=== PATIENT | male | born 1975 | race American Indian/Alaskan Native ===

== ENCOUNTER 2016-06-01 09:05 | Emergency (ER) | payer MEDICAID ==
[2016-06-01] MEDS ORDERED: D5NS 0.2% 1,000 ML IV ONE (09:17)
[2016-06-01] MEDS ORDERED: BENADRYL IV ONE ×2 (11:42→14:46)
[2016-06-01] MEDS ORDERED: ZOFRAN IV ONE (11:42)
[2016-06-01] MEDS ORDERED: DILAUDID IV ONE ×4 (11:42→14:46)
--- NOTE | 2016-06-01 12:19 | Emergency Department Report ---
HPI - General Chief Complaint: Sickle Cell Crisis Time Seen by Provider: 06/01/16 10:57 - HPI HPI: The patient is a 40-year-old male with a history of sickle cell disease, who presents for evaluation of pain. The patient reports left lower back pain for the past one day, constant since onset, 10 out of 10 in severity, throbbing in quality, exacerbated with movement of the lower back. He states that his current pain is consistent with previous episodes of sickle cell pain attacks. The patient denies blunt trauma to the back, fall, fever, chills, night sweats, saddle anesthesia, paresthesias, numbness or tingling in the legs, leg weakness , urine or bowel incontinence or retention, difficulty ambulating, or other focal neurological deficits. ED Past Medical Hx - Past Medical History Hx Hypertension: Yes Hx Diabetes: No Hx Sickle Cell Disease: Yes Hx COPD: No Hx HIV: No Additional medical history: sickle cell. - Surgical History Hx Open Heart Surgery: No Additional Surgical History: Right chest and right arm port and removal of both - Social History Smoking Status: Current Every Day Smoker Substance Use Type: None - Medications Home Medications: Home Medications Medication Instructions Recorded Confirmed Last Taken Type Folic Acid [Folvite] 1 mg PO QDAY #30 tablet 08/29/15 03/21/16 01/28/16 Rx 1 mg. Hydroxyurea [Droxia] 500 mg PO BID #60 capsule 08/29/15 03/21/16 Unknown Rx Lisinopril [Zestril TAB] 1 tab PO BID 12/29/15 03/21/16 Unknown History Methadone [Dolophine] 60 mg PO DAILY 01/29/16 03/21/16 Unknown History Oxycodone HCl/Acetaminophen 1 each PO Q6HR PRN #30 tablet 03/24/16 Unknown Rx [Percocet 10/325 mg] ED Review of Systems ROS: Stated complaint: SICKLE CELL CRISIS Other details as noted in HPI Constitutional: denies: fever ENT: denies: throat or neck pain Respiratory: denies: cough, shortness of breath Cardiovascular: denies: chest pain Endocrine: denies unexplained weight loss or gain Gastrointestinal: denies: abdominal pain, nausea Genitourinary: denies: dysuria Musculoskeletal: reports back pain Skin: denies: rash Neurological: denies: headache Hematological/Lymphatic: denies: easy bleeding or easy bruising Psych: denies sadness or hopelessness Physical Exam - Physical Exam Vital Signs: Vital Signs 06/01/16 09:12 Temperature 98.3 F Pulse Rate 78 Respiratory 20 Rate Blood Pressure 129/90 O2 Sat by Pulse 98 Oximetry Physical Exam: General: well-nourished, well-developed, no acute distress Head: Normocephalic, atraumatic Eyes: normal sclera ENT: Mucous membranes are pale and dry Neck: trachea midline, neck supple, No neck stiffness, no cervical adenopathy Respiratory: Breath sounds equal bilaterally, no wheezing, rales, or rhonchi Cardio: S1 and S2 present, no murmurs, rubs, gallops, capillary refill is delayed Abdomen: Normoactive bowel sounds, soft abdomen, no rigidity, no guarding or rebound tenderness Musc: Tenderness to palpation present to left lower lumbar paraspinal musculature, pain is elicited with flexion at the hip, normal active range of motion at the hip intact, no spinous step-off or obvious deformity, ipsi- lateral and contralateral straight leg raise tests are negative. On extremity testing, compartments are soft and pliable, no obvious gross motor strength deficit, 5+ motor strength, including extension of the great toe bilaterally, no muscular atrophy, spasticity, fasciculations, or clonus, no obvious gross sensation deficit including web space between 1st and 2nd toes, reflexes 2+ & symmetric on DTR testing at the knee and ankle joints, distal pulses intact. Skin: No rash Neuro: no facial drooping, normal speech Psych: Normal affect ED Course Vital Signs 06/01/16 09:12 Temperature 98.3 F Pulse Rate 78 Respiratory 20 Rate Blood Pressure 129/90 O2 Sat by Pulse 98 Oximetry ED Medical Decision Making - Medical Decision Making The patient was seen and examined by myself. The patient is placed on a electronic device monitor and continuous pulse ox. On initial evaluation, the patient was found to be in no distress. No findings on exam concerning for cauda equina syndrome, spinal stenosis, epidural abscess, or other emergent etiology of back pain. As the patient has no midline tenderness on exam, no neuro deficits, and no findings concerning for emergent etiology of their back pain, imaging will not be obtained at this time. IV access is established and the patient is given fluid resuscitation, Zofran, and multiple doses of dilaudid for their pain. Lab results reveal elevated reticulocyte count, and a stable hemoglobin level at patient baseline. Lab results otherwise are not concerning. The patient was reevaluated and reported that their pain was significantly improved. The patient is stable for discharge with outpatient follow-up. The patient is given follow-up and return instructions. The patient expressed understanding and agreed with the plan. The patient is discharged in stable condition. Critical care attestation.: If time is entered above; I have spent that time in minutes in the direct care of this critically ill patient, excluding procedure time. ED Disposition Clinical Impression: Sickle cell crisis, Dehydration Disposition: DISCHARGED TO HOME OR SELFCARE Is pt being admited?: No Does the pt Need Aspirin: No Condition: Stable Instructions: Sickle Cell Crisis (ED) Referrals: PRIMARY CARE, [Primary Care Provider] - 3-5 Days Time of Disposition: 12:18
[2016-06-01 14:13] LABS: Hematocrit 38.4 % (35.5-45.6); Hemoglobin 13.2 gm/dl (11.8-15.2); Mean Corpuscular HGB Conc 34 % (32-34); Mean Corpuscular Hemoglobin 30 pg (28-32); Mean Corpuscular Volume 88 fl (84-94); Platelet Count 340 K/mm3 (140-440); Red Blood Count 4.36 M/mm3 (3.65-5.03); Red Cell Distribution Width 18.1 % (13.2-15.2); White Blood Count 13.2 K/mm3 (4.5-11.0)
[2016-06-01 16:49] VITALS: BP 121/82
== END 2016-06-01 15:50 | disposition home or self-care (01) ==
LOC: ED 09:05
DX: D57.00 Hb-SS disease with crisis, unspecified (principal); E86.0 Dehydration; I10 Essential (primary) hypertension; F17.200 Nicotine dependence, unspecified, uncomplicated
CPT/HCPCS: 36415; 85025; 85045; 96361; 96374; 96375; 96376; 99284; J1170; J1200; J2405

== ENCOUNTER 2016-07-04 13:09 | Emergency (ER) | payer MEDICAID ==
[2016-07-04] MEDS ORDERED: D5NS 0.2% 1,000 ML IV SCH (14:00)
[2016-07-04 14:32] LABS: Basophils % (Auto) 0.6 % (0.0-1.8); Eosinophils % (Auto) 7.1 % (0.0-4.3); Hemoglobin 13.2 gm/dl (11.8-15.2); Mean Corpuscular HGB Conc 34 % (32-34); Mean Corpuscular Hemoglobin 30 pg (28-32); Mean Corpuscular Volume 89 fl (84-94); Red Blood Count 4.37 M/mm3 (3.65-5.03); Red Cell Distribution Width 17.2 % (13.2-15.2); Reticulocyte % 3.64 % (0.78-2.58); White Blood Count 11.3 K/mm3 (4.5-11.0)
[2016-07-04 14:36] LABS: Platelet Count 408 K/mm3 (140-440)
[2016-07-04] MEDS ORDERED: DILAUDID IM ONE ×3 (20:54→22:22)
[2016-07-04] MEDS ORDERED: BENADRYL PO ONE (20:54)
[2016-07-04] MEDS ORDERED: ZOFRAN PO ONE (20:54)
--- NOTE | 2016-07-04 20:59 | Emergency Department Report ---
ED General Adult HPI - General Chief complaint: Sickle Cell Crisis Stated complaint: SICKLE CELL CRISIS Time Seen by Provider: 07/04/16 20:48 Source: patient, RN notes reviewed, old records reviewed Mode of arrival: Ambulatory Limitations: No Limitations - History of Present Illness Initial comments: This is a 40-year-old male. I have evaluated him in the past. Has a past medical history of sickle cell disease. His primary care doctor is Dr. Sherman. Has a past medical history of hypertension, and reports that has been removed from the right arm/chest. The patient presents to the ER complaining of his typical sickle cell crisis pain. The pain is in the left upper extremity, and left lower extremity. It has been present for a few days. It increases with palpation and range of motion, and decreases with intramuscular or intravenous hydromorphone. The patient reports that he always has his pain at a "3." There is no irritative or obstructive urinary symptoms, no abdominal pain, no sore throat. No chest pain. The patient further reports that his triggers for sickle cell crisis included dehydration, whether, change of seasons, emotional stressors. Patient was recently admitted to the hospital earlier on this month for sickle cell crisis. -: Gradual Location: left, upper extremity, lower extremity Quality: aching Consistency: constant Improves with: medication, rest Worsens with: movement Associated Symptoms: loss of appetite, malaise. denies: confusion, chest pain, cough, diaphoresis, fever/chills - Related Data Home Medications Medication Instructions Recorded Confirmed Last Taken Lisinopril [Zestril TAB] 1 tab PO BID 12/29/15 03/21/16 Unknown Methadone [Dolophine] 60 mg PO DAILY 01/29/16 03/21/16 Unknown Previous Rx's Medication Instructions Recorded Last Taken Type Folic Acid [Folvite] 1 mg PO QDAY #30 tablet 08/29/15 01/28/16 Rx 1 mg. Hydroxyurea [Droxia] 500 mg PO BID #60 capsule 08/29/15 Unknown Rx Oxycodone HCl/Acetaminophen 1 each PO Q6HR PRN #14 tablet 06/13/16 Unknown Rx [Percocet 10/325 mg] Ketorolac [Toradol] 10 mg PO Q6H PRN #20 tablet 07/04/16 Unknown Rx oxyCODONE [Roxicodone] 5 mg PO Q6HR PRN #15 tablet 07/04/16 Unknown Rx Allergies Allergy/AdvReac Type Severity Reaction Status Date / Time morphine Allergy Swelling Verified 10/17/15 10:59 prochlorperazine edisylate Allergy Itching Verified 10/17/15 10:59 [From Compazine] prochlorperazine maleate Allergy Itching Verified 10/17/15 10:59 [From Compazine] ED Review of Systems ROS: Stated complaint: SICKLE CELL CRISIS Other details as noted in HPI Constitutional: malaise. denies: fever Eyes: denies: vision change ENT: denies: epistaxis Respiratory: denies: cough Cardiovascular: denies: chest pain Gastrointestinal: denies: abdominal pain Genitourinary: denies: urgency, dysuria Musculoskeletal: arthralgia, myalgia Skin: denies: lesions Neurological: weakness ED Past Medical Hx - Past Medical History Hx Hypertension: Yes Hx Congestive Heart Failure: No Hx Diabetes: No Hx Sickle Cell Disease: Yes Hx Asthma: No Hx COPD: No Hx HIV: No Additional medical history: sickle cell. - Surgical History Hx Open Heart Surgery: No Additional Surgical History: Right chest and right arm port and removal of both - Social History Smoking Status: Current Every Day Smoker Substance Use Type: None - Medications Home Medications: Home Medications Medication Instructions Recorded Confirmed Last Taken Type Folic Acid [Folvite] 1 mg PO QDAY #30 tablet 08/29/15 03/21/16 01/28/16 Rx 1 mg. Hydroxyurea [Droxia] 500 mg PO BID #60 capsule 08/29/15 03/21/16 Unknown Rx Lisinopril [Zestril TAB] 1 tab PO BID 12/29/15 03/21/16 Unknown History Methadone [Dolophine] 60 mg PO DAILY 01/29/16 03/21/16 Unknown History Oxycodone HCl/Acetaminophen 1 each PO Q6HR PRN #14 tablet 06/13/16 Unknown Rx [Percocet 10/325 mg] Ketorolac [Toradol] 10 mg PO Q6H PRN #20 tablet 07/04/16 Unknown Rx oxyCODONE [Roxicodone] 5 mg PO Q6HR PRN #15 tablet 07/04/16 Unknown Rx ED Physical Exam - General Limitations: No Limitations General appearance: in distress - Head Head exam: Present: atraumatic, normocephalic - Eye Eye exam: Present: normal appearance, EOMI. Absent: nystagmus - ENT ENT exam: Present: normal exam, normal orophraynx, mucous membranes moist, normal external ear exam - Neck Neck exam: Present: normal inspection, full ROM. Absent: tenderness, meningismus - Respiratory Respiratory exam: Present: normal lung sounds bilaterally. Absent: respiratory distress, wheezes, rales, rhonchi, stridor, chest wall tenderness, accessory muscle use - Cardiovascular Cardiovascular Exam: Present: normal rhythm, bradycardia, normal heart sounds. Absent: tachycardia, irregular rhythm, systolic murmur, diastolic murmur, rubs, gallop - GI/Abdominal GI/Abdominal exam: Present: soft, normal bowel sounds. Absent: distended, tenderness, guarding, rebound, rigid, pulsatile mass - Rectal Rectal exam: Present: deferred - Extremities Exam Extremities exam: Present: normal inspection, full ROM, tenderness (lung bony tenderness noted in the lower and upper extremities. No redness, pus, streaking or crepitus.), normal capillary refill, other (compartments are soft in 4 extremities. 2+ pulses noted in all 4 extremities. There is no palpable cord, there is negative Homans sign.). Absent: pedal edema, joint swelling, calf tenderness - Back Exam Back exam: Present: normal inspection, full ROM, paraspinal tenderness. Absent : tenderness, CVA tenderness (R), CVA tenderness (L), muscle spasm, vertebral tenderness - Neurological Exam Neurological exam: Present: alert, oriented X3, other (Extraocular movements intact. Tongue midline. No facial droop. Facial sensation intact to light touch in the V1, V2, V3 distribution bilaterally. 5 and 5 strength in 4 extremities.. Sensation is intact to light touch in 4 extremities.). Absent: motor sensory deficit - Psychiatric Psychiatric exam: Present: normal affect, normal mood - Skin Skin exam: Present: warm, dry, intact, normal color. Absent: rash ED Course Vital Signs 07/04/16 07/04/16 07/04/16 13:52 22:04 22:06 Temperature 98.5 F Pulse Rate 48 L 58 L 49 L Respiratory 18 14 22 Rate Blood Pressure 157/94 158/76 O2 Sat by Pulse 98 96 96 Oximetry 07/04/16 07/04/16 07/04/16 22:10 22:16 22:20 Temperature Pulse Rate 50 L 48 L 47 L Respiratory 15 12 15 Rate Blood Pressure 158/76 181/58 181/58 O2 Sat by Pulse 97 97 96 Oximetry 07/04/16 07/04/16 07/04/16 22:26 22:30 22:36 Temperature Pulse Rate 47 L 47 L 50 L Respiratory 14 13 21 Rate Blood Pressure 162/74 162/74 159/77 O2 Sat by Pulse 95 95 96 Oximetry 07/04/16 07/04/16 07/04/16 22:40 22:46 22:50 Temperature Pulse Rate 46 L 50 L 52 L Respiratory 12 19 14 Rate Blood Pressure 159/77 159/77 159/77 O2 Sat by Pulse 98 97 97 Oximetry 07/04/16 07/04/16 22:56 23:00 Temperature Pulse Rate 50 L 55 L Respiratory 11 L 16 Rate Blood Pressure 159/77 159/77 O2 Sat by Pulse 96 97 Oximetry - Reevaluation(s) Reevaluation #1: 07/04/16 20:58 Differential diagnosis: Sickle cell crisis Assessment and plan: 40-year-old male with typical sickle cell crisis. He is afebrile with reassuring vital signs with the exception of slightly elevated blood pressure. He does not appear to be superinfected. His physical examination is not suggestive of compartment syndrome or DVT. His pain will be treated aggressively. Laboratory studies reviewed and appreciated. Reevaluation #2: 07/04/16 22:26 Model signs remained stable. Patient does experience some improvement in his pain. He will be discharged with instructions to follow-up with his outpatient clinical informatics educator. ED Medical Decision Making - Lab Data Result diagrams: 07/04/16 14:10 Vital Signs 07/04/16 13:52 Temperature 98.5 F Pulse Rate 48 L Respiratory 18 Rate Blood Pressure 157/94 O2 Sat by Pulse 98 Oximetry Lab Results 07/04/16 Range/Units 14:10 WBC 11.3 H (4.5-11.0) K/mm3 RBC 4.37 (3.65-5.03) M/mm3 Hgb 13.2 (11.8-15.2) gm/dl Hct 39.0 (35.5-45.6) % MCV 89 (84-94) fl MCH 30 (28-32) pg MCHC 34 (32-34) % RDW 17.2 H (13.2-15.2) % Plt Count 408 (140-440) K/mm3 Lymph % (Auto) 34.0 (13.4-35.0) % [place] % (Auto) 6.4 (0.0-7.3) % Eos % (Auto) 7.1 H (0.0-4.3) % Baso % (Auto) 0.6 (0.0-1.8) % Lymph # 3.9 (1.2-5.4) K/mm3 [place]inkler # 0.7 (0.0-0.8) K/mm3 Eos # 0.8 H (0.0-0.4) K/mm3 Baso # 0.1 (0.0-0.1) K/mm3 Seg Neutrophils % 51.9 (40.0-70.0) % Seg Neutrophils # 5.9 (1.8-7.7) K/mm3 Percent Retic 3.64 H (0.78-2.58) % Critical care attestation.: If time is entered above; I have spent that time in minutes in the direct care of this critically ill patient, excluding procedure time. ED Disposition Clinical Impression: Sickle cell crisis Disposition: DISCHARGED TO HOME OR SELFCARE Is pt being admited?: No Does the pt Need Aspirin: No Condition: Good Instructions: Sickle Cell Crisis (ED) Additional Instructions: Take the pain medication as directed. Follow up with the primary care doctor or conservation specialist within the next week. When taking the oxycodone for pain, do not drive, consume alcohol, or make important decisions. Return to the ER right away with new pain, worsening pain, migration of pain, fevers or chills, intractable nausea or vomiting, inability to tolerate liquid feeds. Follow up with your primary care doctor within the recommended time for inferior hypertension/elevated blood pressure. Long-term complications of hypertension/elevated blood pressure includes stroke, heart attack, disability, , paralysis, permanent loss of quality of life. Dr. Flex Rinaldi is a local primary care doctor. Dr. Fairchild is a local conservation specialist. Prescriptions: Ketorolac [Toradol] 10 mg PO Q6H PRN #20 tablet PRN Reason: Pain oxyCODONE [Roxicodone] 5 mg PO Q6HR PRN #15 tablet PRN Reason: Pain Referrals: PRIMARY CARE, [Primary Care Provider] - 3-5 Days FLEX RINALDI MD [Staff Physician] - 3-5 Days GAURAV FAIRCHILD DO [Staff Physician] - 3-5 Days
[2016-07-04] MEDS ORDERED: ZOFRAN ODT PO ONE (21:00)
[2016-07-04 22:53] VITALS: BP 159/77
== END 2016-07-04 23:12 | disposition home or self-care (01) ==
LOC: ED 13:09
DX: D57.00 Hb-SS disease with crisis, unspecified (principal); I10 Essential (primary) hypertension; F17.200 Nicotine dependence, unspecified, uncomplicated
CPT/HCPCS: 36415; 85025; 85045; 96372; 99283; J1170; Q0162

== ENCOUNTER 2016-11-29 10:04 | Inpatient (IN) | payer MEDICAID ==
[2016-11-29] MEDS ORDERED: D5NS 0.2% 1,000 ML IV SCH (11:00)
[2016-11-29] MEDS ORDERED: BENADRYL IV ONE ×2 (15:27→17:59)
[2016-11-29] MEDS ORDERED: ZOFRAN IV ONE (15:27)
[2016-11-29] MEDS ORDERED: DILAUDID IV ONE ×3 (15:27→19:00)
[2016-11-29] MEDS ORDERED: DILAUDID ONE ×4 (16:07→19:02)
[2016-11-29 18:20] LABS: Basophils % (Auto) 1.4 % (0.0-1.8); Eosinophils % (Auto) 4.6 % (0.0-4.3); Hematocrit 36.7 % (35.5-45.6); Hemoglobin 12.5 gm/dl (11.8-15.2); Mean Corpuscular HGB Conc 34 % (32-34); Mean Corpuscular Hemoglobin 31 pg (28-32); Mean Corpuscular Volume 92 fl (84-94); Platelet Count 366 K/mm3 (140-440); Red Cell Distribution Width 17.5 % (13.2-15.2); Reticulocyte % 3.78 % (0.78-2.58)
--- NOTE | 2016-11-29 19:10 | Emergency Department Report ---
ED General Adult HPI - General Chief complaint: Sickle Cell Crisis Stated complaint: SICKLE CELL PAIN Time Seen by Provider: 11/29/16 15:26 Source: patient Mode of arrival: Ambulatory Limitations: No Limitations - History of Present Illness Initial comments: 41-year-old male with a past medical history hypertension and sickle cell disease presents to the hospital complains of sickle cell pain crisis since yesterday. Patient take Percocet 10/325 mg without relief. Patient complains of left sided arm and leg pain that is constant, rated 9/10 in intensity, sharp. No aggravating or alleviating factors reported. Patient denies any additional symptoms. Symptoms typical of previous crisis in the past. Patient has a history of frequent ER visits for sickle cell related pain as well as going to multiple hospitals for pain medication narcotics. His mother repairer is Dr. Mike Sherman affiliated with [facility]. Severity scale (0 -10): 10 - Related Data Home Medications Medication Instructions Recorded Confirmed Last Taken Lisinopril [Zestril TAB] 1 tab PO BID 12/29/15 03/21/16 Unknown Methadone [Dolophine] 60 mg PO DAILY 01/29/16 03/21/16 Unknown Previous Rx's Medication Instructions Recorded Last Taken Type Folic Acid [Folvite] 1 mg PO QDAY #30 tablet 08/29/15 01/28/16 Rx 1 mg. Hydroxyurea [Droxia] 500 mg PO BID #60 capsule 08/29/15 Unknown Rx Oxycodone HCl/Acetaminophen 1 each PO Q6HR PRN #14 tablet 06/13/16 Unknown Rx [Percocet 10/325 mg] Ketorolac [Toradol] 10 mg PO Q6H PRN #20 tablet 07/04/16 Unknown Rx oxyCODONE [Roxicodone] 5 mg PO Q6HR PRN #15 tablet 07/04/16 Unknown Rx Allergies Allergy/AdvReac Type Severity Reaction Status Date / Time ketorolac tromethamine Allergy Hives Verified 11/29/16 10:18 [From Toradol] morphine Allergy Swelling Verified 11/29/16 10:18 prochlorperazine edisylate Allergy Itching Verified 11/29/16 10:18 [From Compazine] prochlorperazine maleate Allergy Itching Verified 11/29/16 10:18 [From Compazine] ED Review of Systems ROS: Stated complaint: SICKLE CELL PAIN Other details as noted in HPI Comment: All other systems reviewed and negative Other: Constitutional: No fevers chills or weight loss Eyes: No eye pain visual changes or discharge ENT: No ear pain or throat pain Neck: Denies pain Respiratory: Denies cough wheezing shortness of breath Cardiovascular: Denies chest pain, palpitations, syncope GI: Denies abdominal pain, nausea, vomiting, diarrhea : Denies dysuria Musculoskeletal: As per HPI Skin: Denies rash, lesions, erythema Neurologic: Denies headache, numbness, weakness Psychiatric: Denies suicidal ideation, hallucinations ED Past Medical Hx - Past Medical History Hx Hypertension: Yes Hx Congestive Heart Failure: No Hx Diabetes: No Hx Sickle Cell Disease: Yes Hx Asthma: No Hx COPD: No Hx HIV: No Additional medical history: sickle cell. - Surgical History Hx Open Heart Surgery: No Additional Surgical History: Right chest and right arm port and removal of both - Social History Smoking Status: Current Every Day Smoker Substance Use Type: Prescribed - Medications Home Medications: Home Medications Medication Instructions Recorded Confirmed Last Taken Type Folic Acid [Folvite] 1 mg PO QDAY #30 tablet 08/29/15 03/21/16 01/28/16 Rx 1 mg. Hydroxyurea [Droxia] 500 mg PO BID #60 capsule 08/29/15 03/21/16 Unknown Rx Lisinopril [Zestril TAB] 1 tab PO BID 12/29/15 03/21/16 Unknown History Methadone [Dolophine] 60 mg PO DAILY 01/29/16 03/21/16 Unknown History Oxycodone HCl/Acetaminophen 1 each PO Q6HR PRN #14 tablet 06/13/16 Unknown Rx [Percocet 10/325 mg] Ketorolac [Toradol] 10 mg PO Q6H PRN #20 tablet 07/04/16 Unknown Rx oxyCODONE [Roxicodone] 5 mg PO Q6HR PRN #15 tablet 07/04/16 Unknown Rx ED Physical Exam - General Limitations: No Limitations - Other Other exam information: General: No limitations, patient is alert in no acute distress Head exam: Atraumatic, normocephalic Eyes exam: Normal appearance, pupils equal reactive to light, extraocular movements intact ENT: Moist mucous membrane, normal oropharynx Neck exam: Normal inspection, full range of motion, no meningismus nontender Respiratory exam: Clear to auscultation bilateral, no wheezes, rales, crackles Cardiovascular: Normal rate and rhythm, normal heart sounds Abdomen: Soft, nondistended, and nontender, with normal bowel sounds, no rebound, or guarding Extremity: Full range of motion normal inspection no deformity Back: Normal Inspection, full range of motion, no tenderness Neurologic: Alert, oriented x3, cranial nerves intact, no motor or sensory deficit Psychiatric: normal affect, normal mood Skin: Warm, dry, intact ED Course Vital Signs 11/29/16 10:11 Temperature 98.4 F Pulse Rate 57 L Respiratory 18 Rate Blood Pressure 147/96 O2 Sat by Pulse 99 Oximetry - Reevaluation(s) Reevaluation #1: 11/29/16 19:10 Patient received multiple doses of Dilaudid, Benadryl, and IV fluids ED Medical Decision Making - Lab Data Result diagrams: 11/29/16 17:35 Lab Results 11/29/16 Range/Units 17:35 WBC 11.0 (4.5-11.0) K/mm3 RBC 4.00 (3.65-5.03) M/mm3 Hgb 12.5 (11.8-15.2) gm/dl Hct 36.7 (35.5-45.6) % MCV 92 (84-94) fl MCH 31 (28-32) pg MCHC 34 (32-34) % RDW 17.5 H (13.2-15.2) % Plt Count 366 (140-440) K/mm3 Lymph % (Auto) 26.3 (13.4-35.0) % [place] % (Auto) 5.3 (0.0-7.3) % Eos % (Auto) 4.6 H (0.0-4.3) % Baso % (Auto) 1.4 (0.0-1.8) % Lymph # 2.9 (1.2-5.4) K/mm3 Wake # 0.6 (0.0-0.8) K/mm3 Eos # 0.5 H (0.0-0.4) K/mm3 Baso # 0.2 H (0.0-0.1) K/mm3 Seg Neutrophils % 62.4 (40.0-70.0) % Seg Neutrophils # 6.9 (1.8-7.7) K/mm3 Percent Retic 3.78 H (0.78-2.58) % - Medical Decision Making Patient continues have pain and states his pain is 8/10 despite getting a total of 6 mg of Dilaudid. He feels he needs to be admitted for pain control at this time. No significant anemia. Mild inc retic count - Differential Diagnosis sickle cell crisis, anemia, infection, drug-seeking Critical Care Time: No Critical care attestation.: If time is entered above; I have spent that time in minutes in the direct care of this critically ill patient, excluding procedure time. ED Disposition Clinical Impression: Sickle cell crisis, Drug-seeking behavior Disposition: DC09 OP ADMIT IP TO THIS HOSP Is pt being admited?: Yes Condition: Stable Additional Instructions: Take the medications as prescribed. Return symptoms worsen. Time of Disposition: 19:45 (Dr mckenna/hosp)
[2016-11-29] MEDS ORDERED: TYLENOL PO PRN (19:39)
--- NOTE | 2016-11-29 19:45 | History and Physical Report ---
History of Present Illness Chief complaint: Im hurting all over History of present illness: 41 YO Male with SSD, HTN, Nicotine Dependence, drug seeking behavior presents to ED for evaluation. Pt states that he has been experiencing pain all over his body for the past 2 days with worsening symptoms over the past 12 hours. Pt states that pain si 9/10, constant, sharp, no exaggerating or alleviating factors. Pt denies fever, chills, CP, palpitations, NVD, Syncope, BRBPR, leg swelling, calf pain, hemoptysis, productive cough, difficulty breathing, noncompliance with medication, or recent ill contacts. Past History Past Medical History: hypertension, other (SSD) Past Surgical History: Other (Port placement,) Social history: single, smoking. denies: alcohol abuse, prescription drug abuse , IV drug use, full code Family history: hypertension Medications and Allergies Allergies Allergy/AdvReac Type Severity Reaction Status Date / Time ketorolac tromethamine Allergy Hives Verified 11/29/16 10:18 [From Toradol] morphine Allergy Swelling Verified 11/29/16 10:18 prochlorperazine edisylate Allergy Itching Verified 11/29/16 10:18 [From Compazine] prochlorperazine maleate Allergy Itching Verified 11/29/16 10:18 [From Compazine] Home Medications Medication Instructions Recorded Confirmed Last Taken Type Folic Acid [Folvite] 1 mg PO QDAY #30 tablet 08/29/15 03/21/16 01/28/16 Rx 1 mg. Hydroxyurea [Droxia] 500 mg PO BID #60 capsule 08/29/15 03/21/16 Unknown Rx Lisinopril [Zestril TAB] 1 tab PO BID 12/29/15 03/21/16 Unknown History Methadone [Dolophine] 60 mg PO DAILY 01/29/16 03/21/16 Unknown History Oxycodone HCl/Acetaminophen 1 each PO Q6HR PRN #14 tablet 06/13/16 Unknown Rx [Percocet 10/325 mg] Ketorolac [Toradol] 10 mg PO Q6H PRN #20 tablet 07/04/16 Unknown Rx oxyCODONE [Roxicodone] 5 mg PO Q6HR PRN #15 tablet 07/04/16 Unknown Rx Active Meds: Active Medications Acetaminophen (Tylenol) 650 mg PO Q4H PRN PRN Reason: Pain MILD(1-3)/Fever >100.5/STEVEN Folic Acid (Folvite) 1 mg PO QDAY [facility] Dextrose/Sodium Chloride (D5ns 0.2%) 1,000 mls @ 250 mls/hr IV DIRECT FELICITA Last Admin: 11/29/16 16:10 Dose: 250 mls/hr Sodium Chloride (Nacl 0.45% 1000 Ml) 1,000 mls @ 150 mls/hr IV DIRECT FELICITA Lisinopril (Zestril) mg PO BID FELICITA Methadone HCl (Dolophine) 60 mg PO DAILY [facility] Miscellaneous Medication (Hydroxyurea [Droxia]) 500 mg PO BID FELICITA Oxycodone HCl (Roxicodone) 5 mg PO Q6HR PRN PRN Reason: Pain Review of Systems Constitutional: chronic pain, no weight loss, no weight gain, no fever, no chills, no sweats Ears, nose, mouth and throat: no ear pain, no ear discharge, no tinnitis, no decreased hearing Cardiovascular: no chest pain, no orthopnea, no palpitations, no rapid/ irregular heart beat, no edema Respiratory: no cough, no cough with sputum, no excessive sputum, no hemoptysis , no shortness of breath, no dyspnea on exertion, no congestion, no wheezing, no pleurisy Gastrointestinal: no abdominal pain, no nausea, no vomiting, no diarrhea Genitourinary Male: no dysuria, no hematuria, no flank pain, no discharge Rectal: no pain, no incontinence, no bleeding Musculoskeletal: no neck stiffness, no neck pain, no shooting arm pain, no arm numbness/tingling Integumentary: no rash, no pruritis, no redness Neurological: no paralysis, no weakness, no parathesias, no numbness, no tingling Psychiatric: no change in sleep habits, no sleep disturbances, no insomnia Endocrine: no cold intolerance, no heat intolerance, no polyphagia, no excessive thirst, no polydipsia Hematologic/Lymphatic: no easy bruising, no easy bleeding Allergic/Immunologic: no urticaria, no allergic rhinitis, no wheezing Exam - Constitutional Vitals: Temp Pulse Resp BP Pulse Ox 98.4 F 57 L 18 147/96 99 11/29/16 10:11 11/29/16 10:11 11/29/16 10:11 11/29/16 10:11 11/29/16 10:11 General appearance: Present: mild distress - EENT Eyes: Present: PERRL ENT: hearing intact, clear oral mucosa - Neck Neck: Present: supple, normal ROM - Respiratory Respiratory effort: normal Respiratory: bilateral: CTA - Cardiovascular Heart Sounds: Present: S1 & S2. Absent: rub, click - Extremities Extremities: pulses symmetrical, No edema Peripheral Pulses: within normal limits - Abdominal General gastrointestinal: Present: soft, non-tender, non-distended, normal bowel sounds Male genitourinary: Present: normal - Integumentary Integumentary: Present: clear, warm, dry - Musculoskeletal Musculoskeletal: gait normal, strength equal bilaterally - Psychiatric Psychiatric: appropriate mood/affect, intact judgment & insight - Neurologic Neurologic: CNII-XII intact, moves all extremities Results - Labs CBC & Chem 7: 11/29/16 17:35 Labs: Abnormal lab results 11/29/16 Range/Units 17:35 RDW 17.5 H (13.2-15.2) % Eos % (Auto) 4.6 H (0.0-4.3) % Eos # 0.5 H (0.0-0.4) K/mm3 Baso # 0.2 H (0.0-0.1) K/mm3 Percent Retic 3.78 H (0.78-2.58) % Assessment and Plan - Patient Problems (1) Sickle cell crisis Current Visit: Yes Status: Acute Plan to address problem: IVF resuscitation, monitor uop q shift, pain control, supportive care. (2) Drug-seeking behavior Current Visit: Yes Status: Chronic Plan to address problem: resume home narcotics, IVF, (3) Hypertension Current Visit: No Status: Chronic Qualifiers: Hypertension type: H Plan to address problem: monitor bp q shift, resume home medication. (4) DVT prophylaxis Current Visit: No Status: Acute
[2016-11-29] MEDS ORDERED: NACL 0.9% 1000 ML 1,000 ML IV ONE (20:00)
[2016-11-29] MEDS ORDERED: NACL 0.45% 1000 ML 1,000 ML IV SCH (21:00)
[2016-11-29] MEDS: ROXICODONE PO PRN (21:45)
[2016-11-29] MEDS: ZESTRIL PO SCH (21:47)
[2016-11-30] MEDS: DILAUDID IV PRN ×6 (00:49→21:02)
[2016-11-30] MEDS: HYDREA PO SCH ×3 (01:37→21:01)
[2016-11-30] MEDS: ROXICODONE PO PRN ×3 (04:12→22:42)
[2016-11-30] MEDS: DOLOPHINE PO SCH (09:52)
[2016-11-30] MEDS: FOLVITE PO SCH (09:52)
[2016-11-30] MEDS: ZESTRIL PO SCH ×2 (09:54→21:01)
--- NOTE | 2016-11-30 10:03 | Progress Note ---
Assessment and Plan Assessment and plan: Sickle cell vaso-occlusive crisis. Continue IV fluid resuscitation and pain control. Continue supportive care. Hypertension. Continue home medications. DVT prophylaxis. History Interval history: No new issues overnight. Pt. still c/o pain Hospitalist Physical - Constitutional Vitals: Temp Pulse Resp BP Pulse Ox 98.5 F 64 16 144/70 98 11/30/16 08:00 11/30/16 09:54 11/30/16 08:00 11/30/16 09:54 11/30/16 08:00 General appearance: Present: no acute distress - EENT Eyes: Present: PERRL, EOM intact ENT: hearing intact, clear oral mucosa, dentition normal - Neck Neck: Present: supple, normal ROM - Respiratory Respiratory effort: normal Respiratory: bilateral: CTA - Cardiovascular Rhythm: regular Heart Sounds: Present: S1 & S2. Absent: gallop, rub - Extremities Extremities: no ischemia, No edema, Full ROM - Abdominal General gastrointestinal: soft, non-tender, non-distended, normal bowel sounds - Integumentary Integumentary: Present: clear, warm, dry - Neurologic Neurologic: CNII-XII intact, moves all extremities Results - Labs CBC & Chem 7: 11/29/16 17:35 Labs: Laboratory Last Values WBC 11.0 K/mm3 (4.5-11.0) 11/29/16 17:35 RBC 4.00 M/mm3 (3.65-5.03) 11/29/16 17:35 Hgb 12.5 gm/dl (11.8-15.2) 11/29/16 17:35 Hct 36.7 % (35.5-45.6) 11/29/16 17:35 MCV 92 fl (84-94) 11/29/16 17:35 MCH 31 pg (28-32) 11/29/16 17:35 MCHC 34 % (32-34) 11/29/16 17:35 RDW 17.5 % (13.2-15.2) H 11/29/16 17:35 Plt Count 366 K/mm3 (140-440) 11/29/16 17:35 Lymph % (Auto) 26.3 % (13.4-35.0) 11/29/16 17:35 [place] % (Auto) 5.3 % (0.0-7.3) 11/29/16 17:35 Eos % (Auto) 4.6 % (0.0-4.3) H 11/29/16 17:35 Baso % (Auto) 1.4 % (0.0-1.8) 11/29/16 17:35 Lymph # 2.9 K/mm3 (1.2-5.4) 11/29/16 17:35 [place] # 0.6 K/mm3 (0.0-0.8) 11/29/16 17:35 Eos # 0.5 K/mm3 (0.0-0.4) H 11/29/16 17:35 Baso # 0.2 K/mm3 (0.0-0.1) H 11/29/16 17:35 Seg Neutrophils % 62.4 % (40.0-70.0) 11/29/16 17:35 Seg Neutrophils # 6.9 K/mm3 (1.8-7.7) 11/29/16 17:35 Percent Retic 3.78 % (0.78-2.58) H 11/29/16 17:35
[2016-12-01] MEDS: DILAUDID IV PRN ×3 (00:50→09:08)
--- NOTE | 2016-12-01 02:53 | Admit Criteria Form ---
Admission Criteria Documentation: SICKLE CELL DISEASE Clinical Indications for Admission to Inpatient Care (Place 'X' for any and all applicable criteria): Admission is indicated for 1 or more of the following(1)(2)(3)(4): [X ]I. Inpatient admission required rather than observation care (see also observation care guidelines) because of 1 or more of the following(19): [ ]a) Altered mental status [ ]b) High fever or infection requiring inpatient admission as indicated by 1 or more of the following: [ ]A. Appropriate outpatient observation care antimicrobial treatment unavailable, not effective, or not appropriate for infection [ ]B. Documented bacteremia [ ]C. Temp >104.9F (40.5C) (oral) [ ]D. Temp >103.1F (oral) or <96.8F(rectal) that does not respond to all emergency treatment measures [ ]c) Supplemental O2 or respiratory treatments for > 24 hrs that is performable only in acute inpatient setting [ ]d) Continuous parenteral narcotics or other major pain intervention for over 24 hours performable only in acute inpatient setting [ ]e) Exchange transfusion [X ]f) Other condition, treatment or monitoring requiring inpatient admission [ ]II. Acute chest syndrome indicated by ALL of the following (10): [ ]a) New alveolar infiltrate involving at least one lung segment [ ]b) Associated pulmonary symptoms or findings as indicated by1 or more of the following: [ ]i) Chest pain [ ]ii) Hypoxia [ ]iii) Tachypnea/dyspnea [ ]iv) Abnormal breath sounds (wheezing, crackles) [ ]v) Cough [ ]vi) Sputum production [ ]III. Hypoxemia or acidosis (more severe than baseline) [ ]IV. Emergent surgery needed (eg, acute cholecystitis) [ ]V. -related complication(11) [ ]. Splenic or hepatic sequestration(12) [ ]VII. Aplastic crisis [ ]VIII. Priapism or other vascular complication(13) [ ]IX. Traumatic hyphema [A](14) [ ]X. Acute renal failure [ ]XI. Signs or symptoms of central nervous system injury indicated by 1 or more of the following: [ ]a) Stroke(9) [ ]b) Seizure [ ]c) Other significant central nervous system symptom or event Extended stay beyond goal length of stay may be needed for: [ ]a) Inadequate pain control [ ]b) Acute chest syndrome [ ]c) Sequestration or aplastic crisis (12) [ ]d) Pneumonia and asthma exacerbation [ ]e) Neurologic or vascular complications (25) [ ]f) Infection (eg, osteomyelitis) that requires ongoing treatment) The original [facility] [employer] content created by [facility] has been revised. The portions of the content which have been revised are identified through the use of italic text or in bold, and [facility] has neither reviewed nor approved the modified material. All other unmodified content is copyright [facility]. Please see references footnoted in the original [facility] [employer] edition 2017 Admission Criteria Met: Yes
[2016-12-01] MEDS: ROXICODONE PO PRN (06:21)
[2016-12-01 08:54] VITALS: BP 126/70
--- NOTE | 2016-12-01 09:05 | Discharge Summary ---
Providers - Providers Date of Admission: 11/29/16 19:39 Date of discharge: 12/01/16 Attending physician: RIMA LOMBARDO Primary care physician: CRISIS CLINICIAN Hospitalization Reason for admission: sickle cell pain crisis Condition: Stable Hospital course: 41 YO Male with SSD, HTN, Nicotine Dependence, drug seeking behavior presented to ED for evaluation. Pt stated that he had been experiencing pain all over his body for the past 2 days prior to admission with worsening symptoms over the past 12 hours. Pt stated that pain was 9/10, constant, sharp, no exaggerating or alleviating factors. Pt denied fever, chills, CP, palpitations, NVD, Syncope , BRBPR, leg swelling, calf pain, hemoptysis, productive cough, difficulty breathing, noncompliance with medication, or recent ill contacts. Patient was admitted with diagnosis of sickle cell vaso-occlusive crisis and was treated with IV fluids and supportive care. Patient had adequate pain control. Patient returned back to baseline and was felt to have received maximal hospital benefit. Dedicated discharge time 31 minutes. Disposition: TO HOME OR SELFCARE Time spent for discharge: 31 Core Measure Documentation - Palliative Care Palliative Care/ Comfort Measures: Not Applicable - Core Measures Any of the following diagnoses?: none Exam - Constitutional Vitals: Temp Pulse Resp BP Pulse Ox 98.9 F 63 18 126/70 99 12/01/16 08:00 12/01/16 08:00 12/01/16 08:00 12/01/16 08:00 12/01/16 08:00 General appearance: Present: no acute distress, well-nourished - EENT Eyes: Present: PERRL ENT: hearing intact, clear oral mucosa - Neck Neck: Present: supple, normal ROM - Respiratory Respiratory effort: normal Respiratory: bilateral: CTA - Cardiovascular Heart Sounds: Present: S1 & S2. Absent: rub, click - Extremities Extremities: pulses symmetrical, No edema Peripheral Pulses: within normal limits - Abdominal General gastrointestinal: Present: soft, non-tender, non-distended, normal bowel sounds Male genitourinary: Present: normal - Integumentary Integumentary: Present: clear, warm, dry - Musculoskeletal Musculoskeletal: gait normal, strength equal bilaterally - Psychiatric Psychiatric: appropriate mood/affect, intact judgment & insight - Neurologic Neurologic: CNII-XII intact, moves all extremities Plan Activity: no restrictions Weight Bearing Status: Full Weight Bearing Diet: regular Follow up with: PRIMARY CARE, [Primary Care Provider] - 3-5 Days Prescriptions: Folic Acid [Folvite] 1 mg PO QDAY #30 tablet Hydroxyurea [Droxia] 500 mg PO BID #60 capsule Lisinopril [Zestril TAB] 1 tab PO BID #30 tablet Methadone [Dolophine] 60 mg PO DAILY #10 tablet oxyCODONE [Roxicodone TAB] 5 mg PO Q6HR PRN #15 tablet PRN Reason: Pain
[2016-12-01] MEDS: FOLVITE PO SCH (09:06)
[2016-12-01] MEDS: HYDREA PO SCH (09:06)
[2016-12-01] MEDS: DOLOPHINE PO SCH (09:07)
[2016-12-01] MEDS: ZESTRIL PO SCH (09:07)
== END 2016-12-01 10:15 | disposition home or self-care (01) | DRG 812 ==
LOC: ED 10:04 → 3A 19:39
PROVIDERS: ADMIT Internal Medicine; ATTEND Hospitalist
DX: D57.00 Hb-SS disease with crisis, unspecified (principal); Z76.5 Malingerer [conscious simulation]; I10 Essential (primary) hypertension; F17.200 Nicotine dependence, unspecified, uncomplicated; Z79.899 Other long term (current) drug therapy; Z88.5 Allergy status to narcotic agent; Z88.8 Allergy status to other drugs, medicaments and biological substances; Z82.49 Family history of ischemic heart disease and other diseases of the circulatory system
CPT/HCPCS: 36415; 85025; 85045; 99406; J1170; J1200; J2405

== ENCOUNTER 2017-04-27 23:34 | Emergency (ER) | payer MEDICAID ==
[2017-04-28 00:42] VITALS: BP 141/77
[2017-04-28] MEDS ORDERED: D5NS 0.2% 1,000 ML IV SCH (01:00)
--- NOTE | 2017-04-28 01:45 | XRay Report ---
FINAL REPORT PROCEDURE: XR CHEST ROUTINE 2V TECHNIQUE: PA and lateral chest radiographs were obtained. CPT 97626 HISTORY: Shortness of breath COMPARISON: No prior studies are available for comparison. FINDINGS: Heart: Normal. Mediastinum/Vessels: Normal. Lungs/Pleural space: Normal. Bony thorax: No acute osseous abnormality. Other: IMPRESSION: There is no evidence of an acute cardiopulmonary process..
== END 2017-04-28 12:00 | disposition left against medical advice (07) ==
LOC: ED 23:34
DX: Z53.21 Procedure and treatment not carried out due to patient leaving prior to being seen by health care provider (principal)
CPT/HCPCS: 71046; 93005; 93010

== ENCOUNTER 2017-08-27 06:12 | Emergency (ER) | payer MEDICAID ==
[2017-08-27] MEDS ORDERED: D5NS 0.2% 1,000 ML IV SCH (07:00)
[2017-08-27] MEDS ORDERED: DILAUDID IV ONE ×2 (09:57→12:10)
[2017-08-27] MEDS ORDERED: NACL 0.9% 1000 ML 1,000 ML IV ONE ×2 (09:57→12:10)
[2017-08-27] MEDS ORDERED: BENADRYL IV ONE (10:35)
[2017-08-27] MEDS ORDERED: ZOFRAN IV ONE (10:35)
[2017-08-27 11:19] LABS: Hematocrit 35.8 % (35.5-45.6); Hemoglobin 12.2 gm/dl (11.8-15.2); Mean Corpuscular HGB Conc 34 % (32-34); Mean Corpuscular Hemoglobin 30 pg (28-32); Mean Corpuscular Volume 89 fl (84-94); Platelet Count 366 K/mm3 (140-440); Red Blood Count 4.04 M/mm3 (3.65-5.03)
[2017-08-27 12:03] LABS: Basophils % (Manual) 0 % (0.0-1.8); Eosinophils % (Manual) 0 % (0.0-4.3); Total Cells Counted 100
[2017-08-27 12:04] LABS: Anisocytosis 1+; Helmet Cells Few; Poikilocytosis 1+; Sickle Cells Rare; Target Cells 2+
--- NOTE | 2017-08-27 12:45 | Emergency Department Report ---
ED General Adult HPI - General Chief complaint: Sickle Cell Crisis Stated complaint: SICKLE CELL PAIN Time Seen by Provider: 08/27/17 09:50 Source: patient Mode of arrival: Ambulatory Limitations: No Limitations - History of Present Illness Initial comments: Patient is a 41-year-old male with past medical history of sickle cell is well-known to me who is presenting with sickle cell crisis. Patient states she is aching all over. Patient states pain is 10 out 10 in severity. Patient denies any fevers chills nausea vomiting diarrhea at this time. Patient states he does have Percocet at home but it was not helping his pain. Severity scale (0 -10): 9 - Related Data Previous Rx's Medication Instructions Recorded Last Taken Type Oxycodone HCl/Acetaminophen 1 each PO Q6HR PRN #14 tablet 06/13/16 Unknown Rx [Percocet 10/325 mg] Ketorolac [Toradol] 10 mg PO Q6H PRN #20 tablet 07/04/16 Unknown Rx Folic Acid [Folvite] 1 mg PO QDAY #30 tablet 12/01/16 Unknown Rx Hydroxyurea [Droxia] 500 mg PO BID #60 capsule 12/01/16 Unknown Rx Lisinopril [Zestril TAB] 1 tab PO BID #30 tablet 12/01/16 Unknown Rx Methadone [Dolophine] 60 mg PO DAILY #10 tablet 12/01/16 Unknown Rx oxyCODONE [Roxicodone TAB] 5 mg PO Q6HR PRN #15 tablet 12/01/16 Unknown Rx Allergies Allergy/AdvReac Type Severity Reaction Status Date / Time ketorolac tromethamine Allergy Hives Verified 11/29/16 10:18 [From Toradol] morphine Allergy Swelling Verified 11/29/16 10:18 prochlorperazine edisylate Allergy Itching Verified 11/29/16 10:18 [From Compazine] prochlorperazine maleate Allergy Itching Verified 11/29/16 10:18 [From Compazine] ED Review of Systems ROS: Stated complaint: SICKLE CELL PAIN Other details as noted in HPI Comment: All other systems reviewed and negative ED Past Medical Hx - Past Medical History Previous Medical History?: Yes Hx Hypertension: Yes Hx Congestive Heart Failure: No Hx Diabetes: No Hx Sickle Cell Disease: Yes Hx Asthma: No Hx COPD: No Hx HIV: No Additional medical history: sickle cell. - Surgical History Past Surgical History?: Yes Hx Open Heart Surgery: No Additional Surgical History: Right chest and right arm port and removal of both - Social History Smoking Status: Current Every Day Smoker Substance Use Type: None - Medications Home Medications: Home Medications Medication Instructions Recorded Confirmed Last Taken Type Oxycodone HCl/Acetaminophen 1 each PO Q6HR PRN #14 tablet 06/13/16 Unknown Rx [Percocet 10/325 mg] Ketorolac [Toradol] 10 mg PO Q6H PRN #20 tablet 07/04/16 Unknown Rx Folic Acid [Folvite] 1 mg PO QDAY #30 tablet 12/01/16 Unknown Rx Hydroxyurea [Droxia] 500 mg PO BID #60 capsule 12/01/16 Unknown Rx Lisinopril [Zestril TAB] 1 tab PO BID #30 tablet 12/01/16 Unknown Rx Methadone [Dolophine] 60 mg PO DAILY #10 tablet 12/01/16 Unknown Rx oxyCODONE [Roxicodone TAB] 5 mg PO Q6HR PRN #15 tablet 12/01/16 Unknown Rx ED Physical Exam - General Limitations: No Limitations General appearance: alert, in no apparent distress - Head Head exam: Present: atraumatic, normocephalic - Eye Eye exam: Present: normal appearance - ENT ENT exam: Present: mucous membranes moist - Neck Neck exam: Present: normal inspection - Respiratory Respiratory exam: Present: normal lung sounds bilaterally. Absent: respiratory distress - Cardiovascular Cardiovascular Exam: Present: regular rate, normal rhythm. Absent: systolic murmur, diastolic murmur, rubs, gallop - GI/Abdominal GI/Abdominal exam: Present: soft, normal bowel sounds - Rectal Rectal exam: Present: deferred - Extremities Exam Extremities exam: Present: normal inspection - Back Exam Back exam: Present: normal inspection - Neurological Exam Neurological exam: Present: alert, oriented X3 - Psychiatric Psychiatric exam: Present: normal affect, normal mood - Skin Skin exam: Present: warm, dry, intact, normal color. Absent: rash ED Course Vital Signs 08/27/17 06:30 Temperature 98.8 F Pulse Rate 76 Respiratory 20 Rate Blood Pressure 139/92 O2 Sat by Pulse 95 Oximetry ED Medical Decision Making - Lab Data Result diagrams: 08/27/17 10:47 Lab Results 05/17/18 Range/Units 10:47 WBC 20.8 H (4.5-11.0) K/mm3 RBC 4.04 (3.65-5.03) M/mm3 Hgb 12.2 (11.8-15.2) gm/dl Hct 35.8 (35.5-45.6) % MCV 89 (84-94) fl MCH 30 (28-32) pg MCHC 34 (32-34) % RDW 18.0 H (13.2-15.2) % Plt Count 366 (140-440) K/mm3 Add Manual Diff Complete Total Counted 100 Seg Neuts % (Manual) 90.0 H (40.0-70.0) % Band Neutrophils % 0 % Lymphocytes % (Manual) 5.0 L (13.4-35.0) % Reactive Lymphs % (Man) 0 % Monocytes % (Manual) 5.0 (0.0-7.3) % Eosinophils % (Manual) 0 (0.0-4.3) % Basophils % (Manual) 0 (0.0-1.8) % Metamyelocytes % 0 % Myelocytes % 0 % Promyelocytes % 0 % Blast Cells % 0 % Nucleated RBC % 1.0 H (0.0-0.9) % Seg Neutrophils # Man 18.7 H (1.8-7.7) K/mm3 Band Neutrophils # 0.0 K/mm3 Lymphocytes # (Manual) 1.0 L (1.2-5.4) K/mm3 Abs React Lymphs (Man) 0.0 K/mm3 Monocytes # (Manual) 1.0 H (0.0-0.8) K/mm3 Eosinophils # (Manual) 0.0 (0.0-0.4) K/mm3 Basophils # (Manual) 0.0 (0.0-0.1) K/mm3 Metamyelocytes # 0.0 K/mm3 Myelocytes # 0.0 K/mm3 Promyelocytes # 0.0 K/mm3 Blast Cells # 0.0 K/mm3 WBC Morphology Not Reportable Hypersegmented Neuts Not Reportable Hyposegmented Neuts Not Reportable Hypogranular Neuts Not Reportable Smudge Cells Not Reportable Toxic Granulation Not Reportable Toxic Vacuolation Not Reportable Dohle Bodies Not Reportable Pelger-Huet Anomaly Not Reportable Arnoldo Rods Not Reportable Platelet Estimate Appears normal Clumped Platelets Not Reportable Plt Clumps, EDTA Not Reportable Large Platelets Not Reportable Giant Platelets Not Reportable Platelet Satelliting Not Reportable Plt Morphology Comment Not Reportable RBC Morphology Not Reportable Dimorphic RBCs Not Reportable Polychromasia Not Reportable Hypochromasia Not Reportable Poikilocytosis 1+ Anisocytosis 1+ Microcytosis Not Reportable Macrocytosis Not Reportable Spherocytes Not Reportable Pappenheimer Bodies Not Reportable Sickle Cells Rare Target Cells 2+ Tear Drop Cells Not Reportable Ovalocytes Not Reportable Helmet Cells Few [place] Bodies Not Reportable [place] Rings Not Reportable Oscar Cells Not Reportable Bite Cells Not Reportable Crenated Cell Not Reportable Elliptocytes Not Reportable Acanthocytes (Spur) Not Reportable Rouleaux Not Reportable Hemoglobin C Crystals Not Reportable Schistocytes Not Reportable Malaria parasites Not Reportable Percent Retic 2.50 (0.78-2.58) % Primitivo Bodies Not Reportable Hem Pathologist Commnt No - Medical Decision Making Patient has some chronic elevation of his WBC level. Patient is showing no signs of infection at this time. Patient's hemoglobin is within normal limits. Reticulocyte count is not in the extreme range for this patient. Patient was given several doses of Dilaudid IV fluids and will be discharged home. Patient is to follow with his sickle cell clinic. Critical care attestation.: If time is entered above; I have spent that time in minutes in the direct care of this critically ill patient, excluding procedure time. ED Disposition Clinical Impression: Sickle cell crisis Disposition: DC-01 TO HOME OR SELFCARE Is pt being admited?: No Does the pt Need Aspirin: No Condition: Stable Referrals: PRIMARY CARE, [Primary Care Provider] - 3-5 Days
[2017-08-27 16:31] VITALS: BP 138/78
== END 2017-08-27 13:00 | disposition home or self-care (01) ==
LOC: ED 06:12
DX: D57.00 Hb-SS disease with crisis, unspecified (principal); I10 Essential (primary) hypertension; F17.200 Nicotine dependence, unspecified, uncomplicated; Z88.6 Allergy status to analgesic agent; Z88.8 Allergy status to other drugs, medicaments and biological substances
CPT/HCPCS: 36415; 85007; 85025; 85045; 96361; 96374; 96375; 96376; 99283; J1170; J1200; J2405; J7030

== ENCOUNTER 2017-10-04 06:41 | Inpatient (IN) | payer MEDICAID ==
[2017-10-04] MEDS ORDERED: TORADOL ONE (07:51)
[2017-10-04] MEDS ORDERED: ZOFRAN ONE (07:51)
[2017-10-04] MEDS ORDERED: BENADRYL ONE (07:51)
[2017-10-04] MEDS ORDERED: DILAUDID ONE ×2 (07:52→12:03)
[2017-10-04] MEDS ORDERED: NACL 0.45% 1000 ML 1,000 ML IV ONE (07:52)
[2017-10-04] MEDS: NACL 0.45% 1000 ML 1,000 ML IV SCH ×2 (07:54→23:17)
[2017-10-04] MEDS ORDERED: DILAUDID IV ONE ×3 (07:59→09:58)
[2017-10-04] MEDS ORDERED: ZOFRAN IV ONE (07:59)
[2017-10-04] MEDS ORDERED: BENADRYL IV ONE (07:59)
[2017-10-04] MEDS ORDERED: NACL 0.45% 1000 ML IV SCH (08:00)
--- NOTE | 2017-10-04 09:00 | Emergency Department Report ---
HPI - General Chief Complaint: Sickle Cell Crisis Time Seen by Provider: 10/04/17 08:50 - HPI HPI: Room 24 The patient is a 42-year-old male presenting with a chief complaint sickle cell pain crisis. The patient states yesterday began developing pain consistent with a sickle cell pain crisis in his left arm or left leg. Patient states pain started out as a 3/10. The patient states the pain gradually worsened and has Percocet at home was not helping. The patient gives his pain a score of 9/ 10. Patient received some pain medication prior to my evaluation but states this pain is unchanged at 9/10. Location: Left arm, left leg Duration: Constant since yesterday Quality: Sickle cell pain crisis Severity: 9/10 Modifying factors: [see above] Context: [see above] Mode of transportation: Unknown ED Past Medical Hx - Past Medical History Hx Hypertension: Yes Hx Sickle Cell Disease: Yes Additional medical history: sickle cell. - Surgical History Additional Surgical History: Right chest and right arm port and removal of both - Family History Family history: no significant - Social History Smoking Status: Current Every Day Smoker (1/3 pack per day) Substance Use Type: None (denies illicit drug use) - Medications Home Medications: Home Medications Medication Instructions Recorded Confirmed Last Taken Type Oxycodone HCl/Acetaminophen 1 each PO Q6HR PRN #14 tablet 06/13/16 Unknown Rx [Percocet 10/325 mg] Ketorolac [Toradol] 10 mg PO Q6H PRN #20 tablet 07/04/16 Unknown Rx Folic Acid [Folvite] 1 mg PO QDAY #30 tablet 12/01/16 Unknown Rx Hydroxyurea [Droxia] 500 mg PO BID #60 capsule 12/01/16 Unknown Rx Lisinopril [Zestril TAB] 1 tab PO BID #30 tablet 12/01/16 Unknown Rx Methadone [Dolophine] 60 mg PO DAILY #10 tablet 12/01/16 Unknown Rx oxyCODONE [Roxicodone TAB] 5 mg PO Q6HR PRN #15 tablet 12/01/16 Unknown Rx ED Review of Systems ROS: Stated complaint: ARM,LEG PAIN Other details as noted in HPI Constitutional: no symptoms reported Eyes: denies: eye pain ENT: denies: throat pain Respiratory: denies: shortness of breath Cardiovascular: denies: chest pain Gastrointestinal: denies: abdominal pain Genitourinary: denies: dysuria Musculoskeletal: denies: back pain Neurological: denies: headache Hematological/Lymphatic: other (sickle cell pain crisis) Physical Exam - Physical Exam Vital Signs: Vital Signs 10/04/17 10/04/17 07:06 07:57 Temperature 98.7 F Pulse Rate 65 Respiratory 18 16 Rate Blood Pressure 126/87 O2 Sat by Pulse 99 Oximetry Physical Exam: GENERAL: The patient is well-developed well-nourished male lying on a stretcher appearing to be in moderate discomfort. [] HEENT: Normocephalic. Atraumatic. Extraocular motions are intact. Patient has moist mucous membranes. NECK: Supple. Trachea midline CHEST/LUNGS: Clear to auscultation. There is no respiratory distress noted. HEART/CARDIOVASCULAR: Regular. There is no tachycardia. There is no gallop rub or murmur. ABDOMEN: Abdomen is soft, nontender. Patient has normal bowel sounds. There is no abdominal distention. SKIN: There is no rash. There is no edema. There is no diaphoresis. NEURO: The patient is awake, alert, and oriented. The patient is cooperative. The patient has normal speech MUSCULOSKELETAL: There is no evidence of acute injury. ED Course Vital Signs 10/04/17 10/04/17 07:06 07:57 Temperature 98.7 F Pulse Rate 65 Respiratory 18 16 Rate Blood Pressure 126/87 O2 Sat by Pulse 99 Oximetry - Reevaluation(s) Reevaluation #1: 10/04/17 10:15 Patient states he does not feel improved after third round of pain medication. Will admit the patient to the hospital ED Medical Decision Making - Lab Data Result diagrams: 10/04/17 09:14 Laboratory Tests 10/04/17 09:14 WBC 12.0 H RBC 3.89 Hgb 11.6 L Hct 34.3 L MCV 88 MCH 30 MCHC 34 RDW 19.6 H Plt Count 492 H Lymph % (Auto) 18.0 [place] % (Auto) 4.6 Eos % (Auto) 2.4 Baso % (Auto) 1.2 Lymph # 2.2 [place] # 0.5 Eos # 0.3 Baso # 0.1 Seg Neutrophils % 73.8 H Seg Neutrophils # 8.8 H Percent Retic 5.22 H - EKG Data -: EKG Interpreted by Me EKG shows normal: sinus rhythm Rate: bradycardia (58 bpm) - EKG Data When compared to previous EKG there are: previous EKG unavailable - Differential Diagnosis sickle cell pain crisis, aplastic crisis Critical care attestation.: If time is entered above; I have spent that time in minutes in the direct care of this critically ill patient, excluding procedure time. ED Disposition Clinical Impression: Sickle cell crisis Disposition: DC-09 OP ADMIT IP TO THIS HOSP Is pt being admited?: Yes Does the pt Need Aspirin: Yes Condition: Fair Referrals: PRIMARY CARE, [Primary Care Provider] - 3-5 Days Time of Disposition: 10:19 (Hospitalist paged)
[2017-10-04 09:47] LABS: Basophils # (Auto) 0.1 K/mm3 (0.0-0.1); Basophils % (Auto) 1.2 % (0.0-1.8); Eosinophils # (Auto) 0.3 K/mm3 (0.0-0.4); Eosinophils % (Auto) 2.4 % (0.0-4.3); Hematocrit 34.3 % (35.5-45.6); Hemoglobin 11.6 gm/dl (11.8-15.2); Lymphocytes # (Auto) 2.2 K/mm3 (1.2-5.4); Mean Corpuscular HGB Conc 34 % (32-34); Mean Corpuscular Hemoglobin 30 pg (28-32); Mean Corpuscular Volume 88 fl (84-94); Monocytes # (Auto) 0.5 K/mm3 (0.0-0.8); Monocytes % (Auto) 4.6 % (0.0-7.3); Platelet Count 492 K/mm3 (140-440); Red Blood Count 3.89 M/mm3 (3.65-5.03); Red Cell Distribution Width 19.6 % (13.2-15.2)
--- NOTE | 2017-10-04 10:58 | History and Physical Report ---
History of Present Illness Date of examination: 10/04/17 Date of admission: 10/04/17 Chief complaint: Generalized body pains/sickle cell crisis History of present illness: Very pleasant 42-year-old -[place] male patient with significant past medical history of sickle cell anemia follows with private community relations assistant, Presented to the emergency room with generalized body pain mainly in his left arm and left leg grates is pain between 8-9/10 at its peak, the patient reports his baseline pain is always at 3/10. Denies any fever no nausea vomiting or abdominal pain, No urinary symptoms, chest pain or shortness of breath Past History Past Medical History: other (sickle cell disease) Past Surgical History: Other (port placement and removal) Social history: lives with family, smoking, full code. denies: alcohol abuse, prescription drug abuse Family history: hypertension Medications and Allergies Allergies Allergy/AdvReac Type Severity Reaction Status Date / Time ketorolac tromethamine Allergy Hives Verified 10/04/17 07:06 [From Toradol] morphine Allergy Swelling Verified 10/04/17 07:06 prochlorperazine edisylate Allergy Itching Verified 10/04/17 07:06 [From Compazine] prochlorperazine maleate Allergy Itching Verified 10/04/17 07:06 [From Compazine] Home Medications Medication Instructions Recorded Confirmed Last Taken Type Oxycodone HCl/Acetaminophen 1 each PO Q6HR PRN #14 tablet 06/13/16 10/04/17 Unknown Rx [Percocet 10/325 mg] Ketorolac [Toradol] 10 mg PO Q6H PRN #20 tablet 07/04/16 10/04/17 Unknown Rx Folic Acid [Folvite] 1 mg PO QDAY #30 tablet 12/01/16 10/04/17 Unknown Rx Methadone [Dolophine] 60 mg PO DAILY #10 tablet 12/01/16 10/04/17 Unknown Rx Hydroxyurea [Hydrea] 500 mg PO DAILY 10/04/17 10/04/17 Unknown History Lisinopril [Zestril] 20 mg PO DAILY 10/04/17 10/04/17 Unknown History Active Meds: Active Medications Sodium Chloride (Nacl 0.45% 1000 Ml) 1,000 mls @ 125 mls/hr IV DIRECT FELICITA Last Admin: 10/04/17 07:54 Dose: 125 mls/hr Review of Systems Constitutional: other (acute on chronic pain), no weight loss, no weight gain, no fever, no chills Ears, nose, mouth and throat: no nasal congestion, no nasal discharge Cardiovascular: no chest pain, no orthopnea, no palpitations Respiratory: no cough, no shortness of breath Gastrointestinal: no abdominal pain, no nausea, no vomiting Genitourinary Male: no hematuria, no flank pain Musculoskeletal: shooting arm pain, myalgias, other (general body pain) Integumentary: no rash, no lesions Neurological: no seizures, no syncope Psychiatric: no anxiety, no depression Endocrine: no cold intolerance, no heat intolerance, no polydipsia, no polyuria Hematologic/Lymphatic: no easy bruising, no easy bleeding Allergic/Immunologic: no urticaria, no allergic rhinitis Exam - Constitutional Vitals: Temp Pulse Resp BP Pulse Ox 98.7 F 82 16 110/64 98 10/04/17 07:06 10/04/17 08:30 10/04/17 10:04 10/04/17 08:30 10/04/17 08:30 General appearance: Present: no acute distress, well-nourished - EENT Eyes: Present: PERRL, EOM intact - Neck Neck: Present: supple, normal ROM - Respiratory Respiratory effort: normal Respiratory: bilateral: diminished, negative: rales, rhonchi, wheezing - Cardiovascular Rhythm: regular Heart Sounds: Present: S1 & S2 - Extremities Extremities: no ischemia, No edema - Abdominal General gastrointestinal: Present: soft, non-tender, non-distended, normal bowel sounds - Integumentary Integumentary: Present: clear, warm - Musculoskeletal Musculoskeletal: strength equal bilaterally - Psychiatric Psychiatric: appropriate mood/affect, cooperative - Neurologic Neurologic: CNII-XII intact, moves all extremities Results - Labs CBC & Chem 7: 10/04/17 09:14 10/04/17 11:43 Labs: Abnormal lab results 10/04/17 Range/Units 09:14 WBC 12.0 H (4.5-11.0) K/mm3 Hgb 11.6 L (11.8-15.2) gm/dl Hct 34.3 L (35.5-45.6) % RDW 19.6 H (13.2-15.2) % Plt Count 492 H (140-440) K/mm3 Seg Neutrophils % 73.8 H (40.0-70.0) % Seg Neutrophils # 8.8 H (1.8-7.7) K/mm3 Percent Retic 5.22 H (0.78-2.58) % Assessment and Plan --Sickle cell painful crisis; IV fluids, oxygen titrated to O2 sats more than 90%, pain medications Supportive care, hematology consultation --Mild leukocytosis; secondary to dehydration However rule out sepsis, patient has no clinical evidence of sepsis at this point Closely monitor --Very mild hyperkalemia, closely monitor --Acute on Chronic pain syndrome; Continue pain medications per protocol, supportive care --Ongoing tobacco use; smoking cessation counseling done Advised nicotine patch as needed --DVT prophylaxis; Lovenox Closely monitor the patient and adjust management as needed Plan of care reviewed with the patient and his notes
[2017-10-04] MEDS ORDERED: DILAUDID IV PRN (11:00)
[2017-10-04] MEDS ORDERED: NARCAN 0.4 MG/1 ML IV PRN (11:00)
[2017-10-04] MEDS ORDERED: MILK OF MAGNESIA PO PRN (11:00)
[2017-10-04] MEDS ORDERED: DULCOLAX PR PRN (11:00)
[2017-10-04] MEDS ORDERED: D5/0.45NS 1,000 ML IV SCH (11:00)
[2017-10-04] MEDS ORDERED: ZOFRAN IV PRN (11:00)
[2017-10-04] MEDS ORDERED: HABITROL TD ONE (11:00)
[2017-10-04] MEDS ORDERED: ROXICODONE PO PRN (11:23)
[2017-10-04] MEDS ORDERED: NON-FORMULARY (Oxycodone Hcl/Acetaminophen [Percocet 10/325 Mg] 1 EACH) PO PRN (11:23)
[2017-10-04 12:04] LABS: Alanine Aminotransferase 23 units/L (7-56); BUN/Creatinine Ratio 15; Blood Urea Nitrogen 12 mg/dL (9-20); Calcium 9.1 mg/dL (8.4-10.2); Hemolysis Index 0
[2017-10-04] MEDS: DOLOPHINE PO SCH (13:54)
[2017-10-04] MEDS ORDERED: MS CONTIN ER PO SCH ×2 (14:00)
[2017-10-04] MEDS ORDERED: ZESTRIL PO SCH ×2 (15:00→22:00)
[2017-10-04] MEDS: DILAUDID IV PRN ×2 (16:20→20:14)
[2017-10-04] MEDS: ZESTRIL PO SCH (16:20)
[2017-10-04] MEDS: HYDREA PO SCH (16:40)
[2017-10-04] MEDS: BENADRYL IV PRN ×2 (16:41→20:12)
[2017-10-04] MEDS ORDERED: HYDREA PO SCH (22:00)
[2017-10-04] MEDS ORDERED: SENOKOT PO SCH (22:00)
[2017-10-04] MEDS ORDERED: HYDROXYUREA 500 MG PO SCH (22:00)
--- NOTE | 2017-10-04 22:42 | Consultation ---
History of Present Illness - Reason for Consult Consult date: 10/04/17 SCD/pain crisis. Requesting physician: KRISTAN COLEMAN - History of Present Illness Thank you for this consult, patient seen/examined, records/labs reviewed, case d /w him. He presented to the ED, with sxs of pain crisis, admitted for sxs management. Currently getting pain meds/hydration, feels better as per his own account.He is very non compliant and has been fired from my practice long time ago due to that, and drugs misuse. Past History Past Medical History: anemia, hypertension, other (sickle cell disease) Past Surgical History: Other (port placement and removal) Social history: lives with family, smoking, full code. denies: alcohol abuse, prescription drug abuse Family history: hypertension Medications and Allergies Allergies Allergy/AdvReac Type Severity Reaction Status Date / Time ketorolac tromethamine Allergy Hives Verified 10/04/17 07:06 [From Toradol] morphine Allergy Swelling Verified 10/04/17 07:06 prochlorperazine edisylate Allergy Itching Verified 10/04/17 07:06 [From Compazine] prochlorperazine maleate Allergy Itching Verified 10/04/17 07:06 [From Compazine] Home Medications Medication Instructions Recorded Confirmed Last Taken Type Oxycodone HCl/Acetaminophen 1 each PO Q6HR PRN #14 tablet 06/13/16 10/04/17 Unknown Rx [Percocet 10/325 mg] Ketorolac [Toradol] 10 mg PO Q6H PRN #20 tablet 07/04/16 10/04/17 Unknown Rx Folic Acid [Folvite] 1 mg PO QDAY #30 tablet 12/01/16 10/04/17 Unknown Rx Methadone [Dolophine] 60 mg PO DAILY #10 tablet 12/01/16 10/04/17 Unknown Rx Hydroxyurea [Hydrea] 500 mg PO DAILY 10/04/17 10/04/17 Unknown History Lisinopril [Zestril] 20 mg PO DAILY 10/04/17 10/04/17 Unknown History Active Meds: Active Medications Bisacodyl (Dulcolax) 10 mg NM QDAY PRN PRN Reason: Constipation unrelieved by MOM Diphenhydramine HCl (Benadryl) 12.5 mg IV Q4H PRN PRN Reason: Itching Last Admin: 10/04/17 20:12 Dose: 12.5 mg Enoxaparin Sodium (Lovenox) 40 mg SUB-Q QDAY [facility] Folic Acid (Folvite) 1 mg PO QDAY [facility] Hydromorphone HCl (Dilaudid) 2 mg IV Q4H PRN PRN Reason: Pain , Severe (7-10) Last Admin: 10/04/17 20:14 Dose: 2 mg Hydroxyurea (Hydrea) 500 mg PO QDAY [facility] Last Admin: 10/04/17 16:40 Dose: 500 mg Sodium Chloride (Nacl 0.45% 1000 Ml) 1,000 mls @ 125 mls/hr IV DIRECT [facility] Last Admin: 10/04/17 07:54 Dose: 125 mls/hr Lisinopril (Zestril) 20 mg PO DAILY [facility] Last Admin: 10/04/17 16:20 Dose: Not Given Magnesium Hydroxide (Milk Of Magnesia) 30 ml PO Q4H PRN PRN Reason: Constipation Methadone HCl (Dolophine) 60 mg PO DAILY [facility] Last Admin: 10/04/17 13:54 Dose: 60 mg Multivitamins (Theragran Tab) 1 each PO QDAY [facility] Naloxone HCl (Narcan 0.4 Mg/1 Ml) 0.1 mg IV Q2MIN PRN PRN Reason: Res Rate </= 8 or 02 SAT < 92% Ondansetron HCl (Zofran) 4 mg IV Q8H PRN PRN Reason: Nausea And Vomiting Last Admin: 10/04/17 16:21 Dose: 4 mg Oxycodone HCl (Roxicodone) 5 mg PO Q6H PRN PRN Reason: Pain Senna (Senokot) 17.2 mg PO QHS [facility] Last Admin: 10/04/17 21:44 Dose: 17.2 mg Review of Systems Constitutional: chronic pain Exam - Constitutional Vitals: Temp Pulse Resp BP Pulse Ox 98.8 F 62 20 135/90 96 10/04/17 20:42 10/04/17 20:42 10/04/17 20:42 10/04/17 20:42 10/04/17 20:42 General appearance: Present: mild distress, well-nourished - EENT Eyes: Present: PERRL ENT: hearing intact, clear oral mucosa - Neck Neck: Present: supple, normal ROM - Respiratory Respiratory effort: normal Respiratory: bilateral: CTA - Cardiovascular Heart Sounds: Present: S1 & S2. Absent: rub, click - Extremities Extremities: pulses symmetrical, No edema Peripheral Pulses: within normal limits - Abdominal General gastrointestinal: Present: soft, non-tender, non-distended, normal bowel sounds Male genitourinary: Present: deferred - Rectal Rectal Exam: deferred - Integumentary Integumentary: Present: clear, warm, dry - Musculoskeletal Musculoskeletal: gait normal, strength equal bilaterally - Psychiatric Psychiatric: appropriate mood/affect, intact judgment & insight - Neurologic Neurologic: CNII-XII intact, moves all extremities Results - Labs CBC & Chem 7: 10/04/17 09:14 10/04/17 11:43 Labs: Abnormal lab results 10/04/17 10/04/17 Range/Units 09:14 11:43 WBC 12.0 H (4.5-11.0) K/mm3 Hgb 11.6 L (11.8-15.2) gm/dl Hct 34.3 L (35.5-45.6) % RDW 19.6 H (13.2-15.2) % Plt Count 492 H (140-440) K/mm3 Seg Neutrophils % 73.8 H (40.0-70.0) % Seg Neutrophils # 8.8 H (1.8-7.7) K/mm3 Percent Retic 5.22 H (0.78-2.58) % Potassium 5.2 H (3.6-5.0) mmol/L Assessment and Plan - Patient Problems (1) Sickle cell crisis Current Visit: Yes Status: Acute Plan to address problem: as current management. (2) Drug-seeking behavior Current Visit: No Status: Chronic Plan to address problem: judicious use of narcotics. (3) Hypertension Current Visit: No Status: Chronic Plan to address problem: BP controlo. (4) Dehydration Current Visit: Yes Status: Acute Plan to address problem: hydration as you are doing.
[2017-10-05] MEDS: DILAUDID IV PRN ×4 (00:09→11:29)
[2017-10-05] MEDS: BENADRYL IV PRN ×4 (00:09→11:30)
[2017-10-05 08:32] VITALS: BP 138/88
[2017-10-05] MEDS: DOLOPHINE PO SCH (09:29)
[2017-10-05] MEDS: HYDREA PO SCH (09:30)
[2017-10-05] MEDS: ZESTRIL PO SCH (09:31)
[2017-10-05] MEDS ORDERED: FOLVITE PO SCH (10:00)
[2017-10-05] MEDS ORDERED: HABITROL TD SCH (10:00)
[2017-10-05] MEDS ORDERED: LOVENOX SUB-Q SCH (10:00)
[2017-10-05] MEDS ORDERED: THERAGRAN Tab PO SCH (10:00)
--- NOTE | 2017-10-05 11:10 | Discharge Summary ---
Providers - Providers Date of Admission: 10/04/17 12:24 Date of discharge: 10/05/17 Attending physician: ABHI REARDON 10/04/17 11:00 Consult to Physician [CONS] Routine Comment: Consulting Provider: GAURAV FAIRCHILD Physician Instructions: Reason For Exam: sickle cell crisis Primary care physician: [employer] Hospitalization Reason for admission: generalized body pains/sickle cell crisis Condition: Fair Hospital course: Very pleasant 42-year-old -[place] male patient with significant history of sickle cell cell disease was admitted through emergency room with generalized body pains and sickle cell crisis Patient was initially evaluated, Admitted to the hospital, sickle cell crisis pathway initiated Managed with IV hydration, oxygen and pain medications vitamins Patient is also evaluated by new car get ready mechanic, Patient's symptoms significantly improved Today patient states that he feels better, pain significantly decreased He also has all the necessary medications at home Denies any chest pain shortness of breath Vital signs stable, Physical examination prior to discharge is unremarkable Patient is stable at the time of discharge Discharge diagnosis; --Sickle cell disease with painful crisis; --Mild leukocytosis; resolved probably secondary to dehydration --Very mild hyperkalemia, corrected --Acute on Chronic pain syndrome; --Ongoing tobacco use; smoking cessation Gene Disposition: DC-01 TO HOME OR SELFCARE Time spent for discharge: 32 min Core Measure Documentation - Palliative Care Palliative Care/ Comfort Measures: Not Applicable - Core Measures Any of the following diagnoses?: none Exam - Constitutional Vitals: Temp Pulse Resp BP Pulse Ox 99.4 F 65 18 138/88 95 10/05/17 08:12 10/05/17 08:12 10/05/17 08:12 10/05/17 08:12 10/05/17 08:12 General appearance: Present: no acute distress, well-nourished - Neck Neck: Present: supple, normal ROM - Respiratory Respiratory effort: normal Respiratory: bilateral: diminished, negative: rales, rhonchi, wheezing - Cardiovascular Rhythm: regular Heart Sounds: Present: S1 & S2 - Extremities Extremities: no ischemia, No edema - Abdominal General gastrointestinal: Present: soft, non-tender, non-distended, normal bowel sounds - Integumentary Integumentary: Present: clear, warm - Musculoskeletal Musculoskeletal: strength equal bilaterally, generalized weakness - Psychiatric Psychiatric: appropriate mood/affect, cooperative - Neurologic Neurologic: CNII-XII intact, moves all extremities Plan Diet: regular Special Instructions: smoking cessation Additional Instructions: Follow-up new car get ready mechanic in 1-2 weeks. Counselled smoking cessation, advised nicotine patch as needed Follow up with: PRIMARY CARE, [Primary Care Provider] - 3-5 Days
== END 2017-10-05 11:45 | disposition home or self-care (01) | DRG 812 ==
LOC: ED 06:41 → 3A 12:24
PROVIDERS: ADMIT Internal Medicine; ATTEND Internal Medicine
DX: D57.00 Hb-SS disease with crisis, unspecified (principal); D72.829 Elevated white blood cell count, unspecified; E87.5 Hyperkalemia; E86.0 Dehydration; G89.4 Chronic pain syndrome; I10 Essential (primary) hypertension; F17.200 Nicotine dependence, unspecified, uncomplicated; Z71.6 Tobacco abuse counseling; Z76.5 Malingerer [conscious simulation]; Z82.49 Family history of ischemic heart disease and other diseases of the circulatory system; Z88.5 Allergy status to narcotic agent; Z79.899 Other long term (current) drug therapy
CPT/HCPCS: 36415; 80053; 83735; 84100; 85025; 85045; J1170; J1200; J1650; J1885; J2405

== ENCOUNTER 2017-10-19 07:19 | Emergency (ER) | payer MEDICAID ==
[2017-10-19 07:34] VITALS: BP 143/78
[2017-10-19] MEDS ORDERED: D5NS 0.2% 1,000 ML IV SCH (08:00)
[2017-10-19 08:10] LABS: Hematocrit 37.5 % (35.5-45.6); Hemoglobin 13.5 gm/dl (11.8-15.2); Mean Corpuscular HGB Conc 36 % (32-34); Mean Corpuscular Hemoglobin 31 pg (28-32); Mean Corpuscular Volume 87 fl (84-94); Red Blood Count 4.32 M/mm3 (3.65-5.03); Red Cell Distribution Width 18.7 % (13.2-15.2)
[2017-10-19 08:12] LABS: Platelet Count 353 K/mm3 (140-440)
[2017-10-19 08:17] LABS: Alanine Aminotransferase 22 units/L (7-56); Albumin 3.9 g/dL (3.9-5); BUN/Creatinine Ratio 14; Blood Urea Nitrogen 11 mg/dL (9-20); Calcium 9.3 mg/dL (8.4-10.2); Hemolysis Index 44
[2017-10-19 08:57] LABS: Anisocytosis 1+; Large Platelets Rare; Platelet Estimate Consistent w Auto; Target Cells 1+; Total Cells Counted 100
[2017-10-19] MEDS ORDERED: NACL 0.9% 1000 ML 1,000 ML IV ONE (09:35)
[2017-10-19] MEDS ORDERED: BENADRYL IV ONE (09:35)
[2017-10-19] MEDS ORDERED: DILAUDID IV ONE ×2 (09:35→10:50)
--- NOTE | 2017-10-19 11:13 | Emergency Department Report ---
ED General Adult HPI - General Chief complaint: Sickle Cell Crisis Stated complaint: SICKLE CELL CRISIS Time Seen by Provider: 10/19/17 09:26 Source: patient, EMS Mode of arrival: Ambulatory Limitations: No Limitations - History of Present Illness Initial comments: Patient is a 42-year-old black male well-known to the department has a history of sickle cell who is complaining of arm and leg pain. Patient states he has taken his Percocet at home and did not help. Patient denies any fever nausea vomiting at this time. Patient states pain is 10 out of 10. Severity scale (0 -10): 9 Quality: aching Consistency: constant Improves with: none Worsens with: none Associated Symptoms: denies: confusion, chest pain, cough, diaphoresis, headaches, loss of appetite, malaise, nausea/vomiting, rash, shortness of breath , syncope, weakness - Related Data Home Medications Medication Instructions Recorded Confirmed Last Taken Hydroxyurea [Hydrea] 500 mg PO DAILY 10/04/17 10/04/17 Unknown Lisinopril [Zestril] 20 mg PO DAILY 10/04/17 10/04/17 Unknown Previous Rx's Medication Instructions Recorded Last Taken Type Oxycodone HCl/Acetaminophen 1 each PO Q6HR PRN #14 tablet 06/13/16 Unknown Rx [Percocet 10/325 mg] Ketorolac [Toradol] 10 mg PO Q6H PRN #20 tablet 07/04/16 Unknown Rx Folic Acid [Folvite] 1 mg PO QDAY #30 tablet 12/01/16 Unknown Rx Methadone [Dolophine] 60 mg PO DAILY #10 tablet 12/01/16 Unknown Rx Allergies Allergy/AdvReac Type Severity Reaction Status Date / Time ketorolac tromethamine Allergy Hives Verified 10/04/17 07:06 [From Toradol] morphine Allergy Swelling Verified 10/04/17 07:06 prochlorperazine edisylate Allergy Itching Verified 10/04/17 07:06 [From Compazine] prochlorperazine maleate Allergy Itching Verified 10/04/17 07:06 [From Compazine] ED Review of Systems ROS: Stated complaint: SICKLE CELL CRISIS Other details as noted in HPI Comment: All other systems reviewed and negative ED Past Medical Hx - Past Medical History Hx Hypertension: Yes Hx Congestive Heart Failure: No Hx Diabetes: No Hx Sickle Cell Disease: Yes Hx Asthma: No Hx COPD: No Hx HIV: No Additional medical history: sickle cell. - Surgical History Hx Open Heart Surgery: No Additional Surgical History: Right chest and right arm port and removal of both - Social History Smoking Status: Current Every Day Smoker Substance Use Type: None - Medications Home Medications: Home Medications Medication Instructions Recorded Confirmed Last Taken Type Oxycodone HCl/Acetaminophen 1 each PO Q6HR PRN #14 tablet 06/13/16 10/04/17 Unknown Rx [Percocet 10/325 mg] Ketorolac [Toradol] 10 mg PO Q6H PRN #20 tablet 07/04/16 10/04/17 Unknown Rx Folic Acid [Folvite] 1 mg PO QDAY #30 tablet 12/01/16 10/04/17 Unknown Rx Methadone [Dolophine] 60 mg PO DAILY #10 tablet 12/01/16 10/04/17 Unknown Rx Hydroxyurea [Hydrea] 500 mg PO DAILY 10/04/17 10/04/17 Unknown History Lisinopril [Zestril] 20 mg PO DAILY 10/04/17 10/04/17 Unknown History ED Physical Exam - General Limitations: No Limitations General appearance: alert, in distress - Head Head exam: Present: atraumatic, normocephalic - Eye Eye exam: Present: normal appearance - ENT ENT exam: Present: mucous membranes moist - Neck Neck exam: Present: normal inspection - Respiratory Respiratory exam: Present: normal lung sounds bilaterally. Absent: respiratory distress - Cardiovascular Cardiovascular Exam: Present: regular rate, normal rhythm. Absent: systolic murmur, diastolic murmur, rubs, gallop - GI/Abdominal GI/Abdominal exam: Present: soft, normal bowel sounds - Rectal Rectal exam: Present: deferred - Extremities Exam Extremities exam: Present: normal inspection - Back Exam Back exam: Present: normal inspection - Neurological Exam Neurological exam: Present: alert, oriented X3 - Psychiatric Psychiatric exam: Present: normal affect, normal mood - Skin Skin exam: Present: warm, dry, intact, normal color. Absent: rash ED Course Vital Signs 10/19/17 10/19/17 07:27 08:45 Temperature 98.5 F Pulse Rate 50 L Respiratory 18 18 Rate Blood Pressure 143/78 O2 Sat by Pulse 98 98 Oximetry ED Medical Decision Making - Lab Data Result diagrams: 10/19/17 07:37 10/19/17 07:37 - Medical Decision Making Patient's laboratory studies were relatively within normal limits for this patient. He is actually not anemic at this time. Patient reticulocyte count is decreased from his norm. Patient will be given IV fluids and meds for symptomatic relief. Patient will be discharged home. 1112: For being discharged patient took out his own IV and stated that he was unhappy he wasn't getting the amount of pain medicines that he requires. The patient received a total of 4 mg Dilaudid here in the emergency department. Patient has left the hospital without discharge planning. Critical care attestation.: If time is entered above; I have spent that time in minutes in the direct care of this critically ill patient, excluding procedure time. ED Disposition Clinical Impression: Sickle cell crisis Disposition: DC-07 LEFT AGAINST MED ADVICE Is pt being admited?: No Does the pt Need Aspirin: No Condition: Stable Referrals: PRIMARY CARE, [Primary Care Provider] - 3-5 Days Forms: AMA Form
== END 2017-10-19 11:09 | disposition left against medical advice (07) ==
LOC: ED 07:19
DX: D57.00 Hb-SS disease with crisis, unspecified (principal); I10 Essential (primary) hypertension; F17.200 Nicotine dependence, unspecified, uncomplicated; Z88.5 Allergy status to narcotic agent; Z88.8 Allergy status to other drugs, medicaments and biological substances; Z88.6 Allergy status to analgesic agent
CPT/HCPCS: 36415; 80053; 85007; 85025; 85045; 96374; 96375; 96376; 99284; J1170; J1200; J7030

== ENCOUNTER 2017-11-14 08:43 | Emergency (ER) | payer MEDICAID ==
[2017-11-14] MEDS ORDERED: D5NS 0.2% 1,000 ML IV SCH (09:30)
--- NOTE | 2017-11-14 09:41 | Emergency Department Report ---
ED General Adult HPI - General Chief complaint: Sickle Cell Crisis Stated complaint: LEG PAIN Time Seen by Provider: 11/14/17 09:41 Source: patient Mode of arrival: Ambulatory Limitations: No Limitations - History of Present Illness Initial comments: Patient presented to the emergency room complaining of left-sided pain which is consistent with his sickle cell pain crisis. He said he always get this left- sided pain whenever is in crisis and he took his Percocet at home without any relief. He said while in the ED in the past the only thing that relieves his pain is Dilaudid in combination with Benadryl and Zofran. He denies any trauma or fall. He also denies any chest pain, shortness of breath or abdominal pain. -: Gradual Location: left, upper extremity, lower extremity Radiation: non-radiation Severity scale (0 -10): 10 Quality: sharp Improves with: medication Worsens with: none Associated Symptoms: denies other symptoms - Related Data Home Medications Medication Instructions Recorded Confirmed Last Taken Hydroxyurea [Hydrea] 500 mg PO DAILY 10/04/17 10/04/17 Unknown Lisinopril [Zestril] 20 mg PO DAILY 10/04/17 10/04/17 Unknown Previous Rx's Medication Instructions Recorded Last Taken Type Oxycodone HCl/Acetaminophen 1 each PO Q6HR PRN #14 tablet 06/13/16 Unknown Rx [Percocet 10/325 mg] Ketorolac [Toradol] 10 mg PO Q6H PRN #20 tablet 07/04/16 Unknown Rx Folic Acid [Folvite] 1 mg PO QDAY #30 tablet 12/01/16 Unknown Rx Methadone [Dolophine] 60 mg PO DAILY #10 tablet 12/01/16 Unknown Rx Allergies Allergy/AdvReac Type Severity Reaction Status Date / Time ketorolac tromethamine Allergy Hives Verified 11/14/17 08:44 [From Toradol] morphine Allergy Swelling Verified 11/14/17 08:44 prochlorperazine edisylate Allergy Itching Verified 11/14/17 08:44 [From Compazine] prochlorperazine maleate Allergy Itching Verified 11/14/17 08:44 [From Compazine] ED Review of Systems ROS: Stated complaint: LEG PAIN Other details as noted in HPI Comment: All other systems reviewed and negative Constitutional: denies: chills, fever Eyes: denies: eye pain, eye discharge ENT: denies: ear pain, throat pain Cardiovascular: denies: chest pain, palpitations, dyspnea on exertion Endocrine: no symptoms reported Gastrointestinal: denies: abdominal pain, nausea, vomiting, diarrhea Genitourinary: denies: urgency, dysuria, frequency Musculoskeletal: denies: back pain Skin: denies: rash, lesions, change in color Neurological: denies: headache, weakness, numbness Psychiatric: denies: anxiety, depression Hematological/Lymphatic: denies: easy bleeding, easy bruising ED Past Medical Hx - Past Medical History Hx Hypertension: Yes Hx Congestive Heart Failure: No Hx Diabetes: No Hx Sickle Cell Disease: Yes Hx Asthma: No Hx COPD: No Hx HIV: No Additional medical history: sickle cell. - Surgical History Hx Open Heart Surgery: No Additional Surgical History: Right chest and right arm port and removal of both - Social History Smoking Status: Current Every Day Smoker - Medications Home Medications: Home Medications Medication Instructions Recorded Confirmed Last Taken Type Oxycodone HCl/Acetaminophen 1 each PO Q6HR PRN #14 tablet 06/13/16 10/04/17 Unknown Rx [Percocet 10/325 mg] Ketorolac [Toradol] 10 mg PO Q6H PRN #20 tablet 07/04/16 10/04/17 Unknown Rx Folic Acid [Folvite] 1 mg PO QDAY #30 tablet 12/01/16 10/04/17 Unknown Rx Methadone [Dolophine] 60 mg PO DAILY #10 tablet 12/01/16 10/04/17 Unknown Rx Hydroxyurea [Hydrea] 500 mg PO DAILY 10/04/17 10/04/17 Unknown History Lisinopril [Zestril] 20 mg PO DAILY 10/04/17 10/04/17 Unknown History ED Physical Exam - General Limitations: No Limitations General appearance: alert, in no apparent distress - Head Head exam: Present: atraumatic, normocephalic, normal inspection - Eye Eye exam: Present: normal appearance, PERRL, EOMI Pupils: Present: normal accommodation - ENT ENT exam: Present: normal exam, normal orophraynx, mucous membranes moist - Neck Neck exam: Present: normal inspection, full ROM. Absent: tenderness - Respiratory Respiratory exam: Present: normal lung sounds bilaterally. Absent: respiratory distress, wheezes, rales, rhonchi - Cardiovascular Cardiovascular Exam: Present: regular rate, normal rhythm, normal heart sounds - GI/Abdominal GI/Abdominal exam: Present: soft, normal bowel sounds. Absent: distended, tenderness, guarding, rebound - Extremities Exam Extremities exam: Present: normal inspection, full ROM, normal capillary refill. Absent: tenderness - Back Exam Back exam: Present: normal inspection, full ROM. Absent: tenderness, CVA tenderness (R), CVA tenderness (L) - Neurological Exam Neurological exam: Present: alert, oriented X3, CN II-XII intact - Psychiatric Psychiatric exam: Present: normal affect, normal mood - Skin Skin exam: Present: warm, dry, intact, normal color. Absent: rash ED Course Vital Signs 11/14/17 11/14/17 11/14/17 08:44 10:25 10:33 Temperature 98.4 F Pulse Rate 68 Respiratory 18 Rate Blood Pressure 145/105 88/71 O2 Sat by Pulse 97 99 Oximetry - Reevaluation(s) Reevaluation #1: 11/14/17 14:53 Patient's is still complaining of pain after multiple doses of Dilaudid in the ED. We'll go ahead and admit for observation for pain control. Discussed the case with the hospitalist on-call Dr. Carranza. He will admit patient to the hospital for further evaluation and management. ED Medical Decision Making - Lab Data Result diagrams: 11/14/17 10:57 11/14/17 10:57 - Radiology Data Radiology results: report reviewed - Medical Decision Making Sickle cell pain crisis. Critical Care Time: Yes Critical care time in (mins) excluding proc time.: 40 Critical care attestation.: If time is entered above; I have spent that time in minutes in the direct care of this critically ill patient, excluding procedure time. ED Disposition Clinical Impression: Sickle cell pain crisis Disposition: -09 OP ADMIT IP TO THIS HOSP Is pt being admited?: Yes Does the pt Need Aspirin: No Condition: Stable Instructions: Sickle Cell Crisis (ED) Referrals: PRIMARY CARE, [Primary Care Provider] - 3-5 Days Time of Disposition: 14:30
[2017-11-14] MEDS ORDERED: NACL 0.9% 1000 ML 1,000 ML IV ONE ×2 (09:54)
[2017-11-14] MEDS ORDERED: DILAUDID IV ONE ×4 (09:54→15:11)
[2017-11-14] MEDS ORDERED: BENADRYL IV ONE (09:55)
[2017-11-14] MEDS ORDERED: ZOFRAN IV ONE (09:55)
[2017-11-14 11:04] LABS: Basophils # (Auto) 0.2 K/mm3 (0.0-0.1); Basophils % (Auto) 1.9 % (0.0-1.8); Eosinophils # (Auto) 0.3 K/mm3 (0.0-0.4); Eosinophils % (Auto) 2.4 % (0.0-4.3); Hematocrit 37.2 % (35.5-45.6); Hemoglobin 13.1 gm/dl (11.8-15.2); Lymphocytes # (Auto) 2.8 K/mm3 (1.2-5.4); Lymphocytes % (Auto) 24.1 % (13.4-35.0); Mean Corpuscular HGB Conc 35 % (32-34); Mean Corpuscular Hemoglobin 30 pg (28-32); Mean Corpuscular Volume 84 fl (84-94); Monocytes # (Auto) 0.9 K/mm3 (0.0-0.8); Monocytes % (Auto) 7.8 % (0.0-7.3); Platelet Count 420 K/mm3 (140-440); Red Blood Count 4.45 M/mm3 (3.65-5.03)
[2017-11-14 11:14] LABS: INR 0.92 (0.87-1.13)
[2017-11-14 11:20] LABS: Alanine Aminotransferase 53 units/L (7-56); Albumin 4.3 g/dL (3.9-5); BUN/Creatinine Ratio 14; Blood Urea Nitrogen 11 mg/dL (9-20); Calcium 9.2 mg/dL (8.4-10.2); Hemolysis Index 8
[2017-11-14 11:57] VITALS: BP 88/71
[2017-11-14] MEDS ORDERED: NACL 0.9% 1000 ML 2,000 ML IV ONE (14:23)
--- NOTE | 2017-11-14 14:23 | History and Physical Report ---
History of Present Illness Chief complaint: It hurts all over my body History of present illness: 42 YO Male with SSD, HTN, Nicotine Dependence, Drug seeking behavior presents to ED for evaluation. Pt states that he has been experiencing pain all over his body for the past 3 days with worsening symptoms over the past 1 day. Pt states that pain is 10/10, constant, sharp and stabbing, no exacerbating or alleviating factors. Pt denies fever, chills, CP, palpitations, NVD, Syncope, BRBPR, leg swelling, calf pain, hemoptysis, productive cough, difficulty breathing, noncompliance with medication, skin rash, or recent ill contacts. Pt seen and evaluated in ED and found to have SSD Pain Crisis. Pt admitted to medical floor. Past History Past Medical History: hypertension, other (SSD, Nicotine Dependence) Past Surgical History: Other (Right chest/right Arm port) Social history: single, smoking, prescription drug abuse. denies: alcohol abuse Family history: hypertension, other (SSD) Medications and Allergies Allergies Allergy/AdvReac Type Severity Reaction Status Date / Time ketorolac tromethamine Allergy Hives Verified 11/14/17 08:44 [From Toradol] morphine Allergy Swelling Verified 11/14/17 08:44 prochlorperazine edisylate Allergy Itching Verified 11/14/17 08:44 [From Compazine] prochlorperazine maleate Allergy Itching Verified 11/14/17 08:44 [From Compazine] Home Medications Medication Instructions Recorded Confirmed Last Taken Type Oxycodone HCl/Acetaminophen 1 each PO Q6HR PRN #14 tablet 06/13/16 10/04/17 Unknown Rx [Percocet 10/325 mg] Ketorolac [Toradol] 10 mg PO Q6H PRN #20 tablet 07/04/16 10/04/17 Unknown Rx Folic Acid [Folvite] 1 mg PO QDAY #30 tablet 12/01/16 10/04/17 Unknown Rx Methadone [Dolophine] 60 mg PO DAILY #10 tablet 12/01/16 10/04/17 Unknown Rx Hydroxyurea [Hydrea] 500 mg PO DAILY 10/04/17 10/04/17 Unknown History Lisinopril [Zestril] 20 mg PO DAILY 10/04/17 10/04/17 Unknown History Review of Systems Constitutional: chronic pain, no weight loss, no weight gain, no fever, no chills Ears, nose, mouth and throat: no ear pain, no ear discharge, no tinnitis, no decreased hearing, no nasal congestion, no nasal discharge Cardiovascular: no chest pain, no orthopnea, no palpitations, no rapid/ irregular heart beat, no edema Respiratory: no cough, no cough with sputum, no excessive sputum, no hemoptysis Gastrointestinal: no nausea, no vomiting, no diarrhea, no constipation, no change in bowel habits Genitourinary Male: no hematuria, no urinary frequency, no urinary hesitancy, no nocturia, no incontinence Rectal: no incontinence, no bleeding Musculoskeletal: no shooting arm pain, no arm numbness/tingling, no leg numbness /tingling, no hot joints, no morning stiffness, no muscle weakness, no muscle cramps Integumentary: no rash, no pruritis, no redness, no sores, no wounds Neurological: no head injury, no transient paralysis, no paralysis, no weakness , no parathesias, no numbness, no tingling Psychiatric: no anxiety, no memory loss, no change in sleep habits, no sleep disturbances, no insomnia, no hypersomnia, no change in appetite Endocrine: no cold intolerance, no heat intolerance, no polyphagia, no excessive thirst, no polydipsia, no polyuria Hematologic/Lymphatic: no easy bruising, no easy bleeding, no lymphadenopathy, no lymphedema Allergic/Immunologic: no urticaria, no allergic rhinitis, no wheezing, no persistent infections, no anaphylaxis Exam - Constitutional Vitals: Temp Pulse Resp BP Pulse Ox 98.4 F 68 18 88/71 99 11/14/17 08:44 11/14/17 08:44 11/14/17 08:44 11/14/17 10:33 11/14/17 10:25 General appearance: Present: mild distress - EENT Eyes: Present: PERRL ENT: hearing intact, clear oral mucosa - Neck Neck: Present: supple, normal ROM - Respiratory Respiratory effort: normal Respiratory: bilateral: CTA - Cardiovascular Heart Sounds: Present: S1 & S2. Absent: rub, click - Extremities Extremities: pulses symmetrical, No edema Peripheral Pulses: within normal limits - Abdominal General gastrointestinal: Present: soft, non-tender, non-distended, normal bowel sounds Male genitourinary: Present: normal - Integumentary Integumentary: Present: clear, warm, dry - Musculoskeletal Musculoskeletal: gait normal, strength equal bilaterally - Psychiatric Psychiatric: appropriate mood/affect, intact judgment & insight - Neurologic Neurologic: CNII-XII intact, moves all extremities Results - Labs CBC & Chem 7: 11/14/17 10:57 11/14/17 10:57 Labs: Abnormal lab results 11/14/17 11/14/17 Range/Units 10:57 10:57 WBC 11.5 H (4.5-11.0) K/mm3 MCHC 35 H (32-34) % RDW 19.0 H (13.2-15.2) % [place] % (Auto) 7.8 H (0.0-7.3) % Baso % (Auto) 1.9 H (0.0-1.8) % [place] # 0.9 H (0.0-0.8) K/mm3 Baso # 0.2 H (0.0-0.1) K/mm3 Percent Retic 3.53 H (0.78-2.58) % Total Bilirubin 1.90 H (0.1-1.2) mg/dL AST 53 H (5-40) units/L Assessment and Plan - Patient Problems (1) Sickle cell pain crisis Current Visit: Yes Status: Acute Plan to address problem: IVF Resuscitation, monitor uop q shift, Pain control, supportive care, retic count, CBC, cmp (2) Drug-seeking behavior Current Visit: No Status: Chronic Plan to address problem: Pain control, supportive care. serial physical exam. (3) Hypertension Current Visit: No Status: Chronic Qualifiers: Hypertension type: essential hypertension Qualified Code(s): I10 - Essential (primary) hypertension Plan to address problem: monitor bp q shift, continue medical management. (4) DVT prophylaxis Current Visit: No Status: Acute Plan to address problem: SCD to BLE while in bed.
[2017-11-14] MEDS ORDERED: NON-FORMULARY (Oxycodone Hcl/Acetaminophen [Percocet 10/325 Mg] 1 EACH) PO PRN (14:24)
[2017-11-14] MEDS ORDERED: TORADOL PO PRN (14:24)
[2017-11-14] MEDS ORDERED: PERCOCET 5/325 PO PRN (14:54)
[2017-11-14] MEDS ORDERED: ROXICODONE PO PRN (14:56)
[2017-11-14] MEDS ORDERED: NACL 0.9% 1000 ML 1,000 ML IV SCH (15:00)
[2017-11-14] MEDS ORDERED: DOLOPHINE PO ONE (15:22)
[2017-11-15] MEDS ORDERED: DOLOPHINE PO SCH (10:00)
[2017-11-15] MEDS ORDERED: ZESTRIL PO SCH (10:00)
[2017-11-15] MEDS ORDERED: HYDREA PO SCH (10:00)
[2017-11-15] MEDS ORDERED: FOLVITE PO SCH (10:00)
== END 2017-11-14 19:30 | disposition admitted as inpatient to this hospital (09) ==
LOC: ED 08:43
DX: D57.00 Hb-SS disease with crisis, unspecified (principal); I10 Essential (primary) hypertension; F17.200 Nicotine dependence, unspecified, uncomplicated; Z88.6 Allergy status to analgesic agent; Z88.8 Allergy status to other drugs, medicaments and biological substances
CPT/HCPCS: 36415; 80053; 85025; 85045; 85610; 85730; 96374; 96375; 96376; 99285; J1170; J1200; J2405; J7030; 99291

== ENCOUNTER 2017-12-02 06:45 | Inpatient (IN) | payer MEDICAID ==
[2017-12-02] MEDS ORDERED: D5NS 0.2% 1,000 ML IV SCH (08:00)
[2017-12-02] MEDS ORDERED: DILAUDID ONE (09:30)
[2017-12-02] MEDS ORDERED: ZOFRAN ONE (09:30)
[2017-12-02] MEDS ORDERED: BENADRYL IV ONE (09:31)
[2017-12-02] MEDS ORDERED: DILAUDID IV ONE (09:31)
[2017-12-02] MEDS ORDERED: ZOFRAN IV ONE (09:31)
[2017-12-02] MEDS ORDERED: BENADRYL ONE (09:35)
--- NOTE | 2017-12-02 09:53 | Emergency Department Report ---
HPI - General Chief Complaint: Sickle Cell Crisis Time Seen by Provider: 12/02/17 09:22 - HPI HPI: Room 26 The patient is a 42-year-old male presenting with a chief complaint of sickle cell pain crisis. The patient states his symptoms began yesterday with pain in his left upper extremity and bilateral lower extremity. Patient states the pain feels like a sickle cell. Patient states she's been compliant with all of his medications. Patient states his home pain medications have not helped. Patient denies any history of fever. The patient gives his pain a score of 9/10 Location: [See above] Duration: Constant since last night Quality: Sickle cell pain crisis Severity: 9/10 Modifying factors: [see above] Context: [see above] Mode of transportation: [not driving] ED Past Medical Hx - Past Medical History Previous Medical History?: Yes Hx Hypertension: Yes Hx Sickle Cell Disease: Yes Additional medical history: sickle cell. - Surgical History Additional Surgical History: Right chest and right arm port and removal of both - Family History Family history: no significant - Social History Smoking Status: Current Every Day Smoker Substance Use Type: None - Medications Home Medications: Home Medications Medication Instructions Recorded Confirmed Last Taken Type Oxycodone HCl/Acetaminophen 1 each PO Q6HR PRN #14 tablet 06/13/16 10/04/17 Unknown Rx [Percocet 10/325 mg] Ketorolac [Toradol] 10 mg PO Q6H PRN #20 tablet 07/04/16 10/04/17 Unknown Rx Folic Acid [Folvite] 1 mg PO QDAY #30 tablet 12/01/16 10/04/17 Unknown Rx Methadone [Dolophine] 60 mg PO DAILY #10 tablet 12/01/16 10/04/17 Unknown Rx Hydroxyurea [Hydrea] 500 mg PO DAILY 10/04/17 10/04/17 Unknown History Lisinopril [Zestril] 20 mg PO DAILY 10/04/17 10/04/17 Unknown History ED Review of Systems ROS: Stated complaint: SICKLE CELL PAIN Other details as noted in HPI Constitutional: denies: fever Eyes: denies: eye pain ENT: denies: throat pain Respiratory: no symptoms reported Cardiovascular: denies: chest pain Endocrine: denies: unexplained weight gain Gastrointestinal: denies: abdominal pain Genitourinary: denies: dysuria Musculoskeletal: myalgia Skin: denies: change in color Neurological: denies: headache Hematological/Lymphatic: other (sickle cell pain crisis) Physical Exam - Physical Exam Vital Signs: Vital Signs 12/02/17 12/02/17 07:11 09:03 Temperature 98.1 F Pulse Rate 68 Respiratory 18 Rate Blood Pressure 142/80 O2 Sat by Pulse 100 94 Oximetry Physical Exam: GENERAL: The patient is well-developed well-nourished male lying on stretcher appearing to be in mild discomfort. [] HEENT: Normocephalic. Atraumatic. Extraocular motions are intact. Patient has moist mucous membranes. NECK: Supple. Trachea midline CHEST/LUNGS: Clear to auscultation. There is no respiratory distress noted. HEART/CARDIOVASCULAR: Regular. There is no tachycardia. There is no gallop rub or murmur. ABDOMEN: Abdomen is soft, nontender. Patient has normal bowel sounds. There is no abdominal distention. SKIN: There is no rash. There is no edema. There is no diaphoresis. NEURO: The patient is awake, alert, and oriented. The patient is cooperative. The patient has normal speech MUSCULOSKELETAL: There is no evidence of acute injury. ED Course Vital Signs 12/02/17 12/02/17 07:11 09:03 Temperature 98.1 F Pulse Rate 68 Respiratory 18 Rate Blood Pressure 142/80 O2 Sat by Pulse 100 94 Oximetry - Consultations Consultation #1: 12/02/17 11:44 Patient states he still has significant pain of 3 doses of Dilaudid. The patient states he is not comfortable going home. Will admit ED Medical Decision Making - Lab Data Result diagrams: 12/02/17 09:52 Laboratory Tests 12/02/17 09:52 WBC 11.9 H RBC 3.67 Hgb 11.1 L Hct 31.8 L MCV 87 MCH 30 MCHC 35 H RDW 19.7 H Plt Count 385 Lymph % (Auto) 23.0 [place] % (Auto) 5.2 Eos % (Auto) 5.4 H Baso % (Auto) 1.5 Lymph # 2.7 [place] # 0.6 Eos # 0.6 H Baso # 0.2 H Seg Neutrophils % 64.9 Seg Neutrophils # 7.8 H Percent Retic 5.46 H - Differential Diagnosis sickle cell pain crisis Critical care attestation.: If time is entered above; I have spent that time in minutes in the direct care of this critically ill patient, excluding procedure time. ED Disposition Clinical Impression: Sickle cell crisis Disposition: DC-01 TO HOME OR SELFCARE Is pt being admited?: Yes Does the pt Need Aspirin: No Condition: Fair Referrals: PRIMARY CARE,MD [Primary Care Provider] - 3-5 Days Time of Disposition: 11:45 (hospitalist paged (Dr. Carranza))
[2017-12-02 10:17] LABS: Basophils # (Auto) 0.2 K/mm3 (0.0-0.1); Basophils % (Auto) 1.5 % (0.0-1.8); Eosinophils # (Auto) 0.6 K/mm3 (0.0-0.4); Eosinophils % (Auto) 5.4 % (0.0-4.3); Hematocrit 31.8 % (35.5-45.6); Hemoglobin 11.1 gm/dl (11.8-15.2); Lymphocytes # (Auto) 2.7 K/mm3 (1.2-5.4); Mean Corpuscular HGB Conc 35 % (32-34); Mean Corpuscular Hemoglobin 30 pg (28-32); Mean Corpuscular Volume 87 fl (84-94); Monocytes # (Auto) 0.6 K/mm3 (0.0-0.8); Monocytes % (Auto) 5.2 % (0.0-7.3); Platelet Count 385 K/mm3 (140-440); Red Blood Count 3.67 M/mm3 (3.65-5.03); Red Cell Distribution Width 19.7 % (13.2-15.2)
[2017-12-02] MEDS ORDERED: DILAUDID IV PRN ×2 (10:24→11:15)
[2017-12-02] MEDS ORDERED: TYLENOL PO PRN (13:27)
[2017-12-02] MEDS ORDERED: PROVENTIL IH PRN (13:27)
[2017-12-02] MEDS ORDERED: SODIUM CHLORIDE FLUSH SYRINGE 10 ML IV PRN (13:27)
[2017-12-02] MEDS ORDERED: ZOFRAN IV PRN (13:27)
--- NOTE | 2017-12-02 13:27 | History and Physical Report ---
History of Present Illness Chief complaint: Im in pain History of present illness: 42 YO Male with SCD, HTN, Nicotine Dependence, drug seeking behavior presents to ED for evaluation. Pt states that he has been experiencing pain all over his body for the past 2 days with worsening symptoms over the past 1 day. Pt states that his pain is 9/10, constant, sharp, no exaggerating or alleviating factors , and hurts all over his body. Pt denies fever, chills, CP, palpitations, NVD, Syncope, BRBPR, leg swelling, shortness of breath, calf pain, hemoptysis, productive cough, difficulty breathing, noncompliance with medication, or recent ill contacts. Pt seen and evaluated in ED and found to have SSD Crisis, as well as drug seeking behavior. Past History Past Medical History: hypertension, other (SCD) Past Surgical History: Other (Right Chest/Arm Port) Social history: prescription drug abuse Family history: other (SCD) Medications and Allergies Allergies Allergy/AdvReac Type Severity Reaction Status Date / Time ketorolac tromethamine Allergy Hives Verified 12/02/17 07:11 [From Toradol] morphine Allergy Swelling Verified 12/02/17 07:11 prochlorperazine edisylate Allergy Itching Verified 12/02/17 07:11 [From Compazine] prochlorperazine maleate Allergy Itching Verified 12/02/17 07:11 [From Compazine] Home Medications Medication Instructions Recorded Confirmed Last Taken Type Folic Acid [Folvite] 1 mg PO QDAY #30 tablet 12/01/16 12/02/17 12/01/17 Rx Methadone [Dolophine] 60 mg PO DAILY #10 tablet 12/01/16 12/02/17 12/01/17 Rx Hydroxyurea [Hydrea] 500 mg PO DAILY 10/04/17 12/02/17 12/01/17 History Lisinopril [Zestril] 20 mg PO DAILY 10/04/17 12/02/17 12/01/17 History Oxycodone HCl/Acetaminophen 1 each PO Q4-6H PRN 12/02/17 12/02/17 12/01/17 History [Percocet 10/325 mg] Active Meds: Active Medications Hydromorphone HCl (Dilaudid) 2 mg IV ONCE PRN PRN Reason: Pain , Severe (7-10) Last Admin: 12/02/17 10:45 Dose: 2 mg Hydromorphone HCl (Dilaudid) 2 mg IV ONCE PRN PRN Reason: Pain , Severe (7-10) Last Admin: 12/02/17 11:30 Dose: 2 mg Dextrose/Sodium Chloride (D5ns 0.2%) 1,000 mls @ 250 mls/hr IV DIRECT FELICITA Last Admin: 12/02/17 09:37 Dose: 250 mls/hr Review of Systems Constitutional: chronic pain Ears, nose, mouth and throat: no ear pain, no ear discharge, no tinnitis, no decreased hearing, no nose pain Cardiovascular: no orthopnea, no palpitations, no rapid/irregular heart beat, no edema, no syncope Respiratory: no cough with sputum, no excessive sputum, no hemoptysis, no shortness of breath, no dyspnea on exertion Gastrointestinal: no nausea, no change in bowel habits Genitourinary Male: no flank pain, no discharge, no urinary frequency, no urinary hesitancy, no nocturia, no incontinence Rectal: no incontinence, no bleeding, no itching, no hemorrhoids Musculoskeletal: no neck stiffness, no redness of joints, no hot joints, no morning stiffness, no muscle weakness, no muscle cramps, no myalgias Integumentary: no rash, no pruritis, no redness, no sores, no wounds Neurological: no paralysis, no weakness, no parathesias, no numbness, no tingling, no seizures Psychiatric: no memory loss, no change in sleep habits, no sleep disturbances, no insomnia, no hypersomnia, no change in appetite Endocrine: no cold intolerance, no heat intolerance, no polyphagia, no polydipsia, no nocturia Hematologic/Lymphatic: no easy bruising, no easy bleeding, no lymphadenopathy, no lymphedema Allergic/Immunologic: no urticaria, no wheezing, no persistent infections, no angioedema Exam - Constitutional Vitals: Temp Pulse Resp BP Pulse Ox 98.1 F 68 18 120/82 91 12/02/17 07:11 12/02/17 07:11 12/02/17 07:11 12/02/17 12:00 12/02/17 12:00 General appearance: Present: mild distress - EENT Eyes: Present: PERRL, miosis (pupils sluggish, minimally reactive) ENT: hearing intact, clear oral mucosa - Neck Neck: Present: supple, normal ROM - Respiratory Respiratory effort: normal Respiratory: bilateral: CTA - Cardiovascular Heart Sounds: Present: S1 & S2. Absent: rub, click - Extremities Extremities: pulses symmetrical, No edema Peripheral Pulses: within normal limits - Abdominal General gastrointestinal: Present: soft, non-tender, non-distended, normal bowel sounds Male genitourinary: Present: normal - Integumentary Integumentary: Present: clear, warm, dry - Musculoskeletal Musculoskeletal: gait normal, strength equal bilaterally - Psychiatric Psychiatric: appropriate mood/affect, intact judgment & insight - Neurologic Neurologic: CNII-XII intact, moves all extremities Results - Labs CBC & Chem 7: 12/02/17 09:52 Labs: Abnormal lab results 12/02/17 Range/Units 09:52 WBC 11.9 H (4.5-11.0) K/mm3 Hgb 11.1 L (11.8-15.2) gm/dl Hct 31.8 L (35.5-45.6) % MCHC 35 H (32-34) % RDW 19.7 H (13.2-15.2) % Eos % (Auto) 5.4 H (0.0-4.3) % Eos # 0.6 H (0.0-0.4) K/mm3 Baso # 0.2 H (0.0-0.1) K/mm3 Seg Neutrophils # 7.8 H (1.8-7.7) K/mm3 Percent Retic 5.46 H (0.78-2.58) % Assessment and Plan - Patient Problems (1) Sickle cell crisis Current Visit: Yes Status: Acute Plan to address problem: IVF resuscitation, monitor uop q shift, pain control, supportive care, CBC, CMP , Retic count, (2) Drug-seeking behavior Current Visit: No Status: Chronic Plan to address problem: Pain control, supportive care. Pt complains of symptoms out of proportion to exam and interview findings. (3) Hypertension Current Visit: No Status: Chronic Qualifiers: Hypertension type: essential hypertension Qualified Code(s): I10 - Essential (primary) hypertension Plan to address problem: Monitor bp q shift, pain control, continue medical management. (4) DVT prophylaxis Current Visit: No Status: Acute Plan to address problem: SCD to BLE while in bed.
[2017-12-02] MEDS ORDERED: NACL 0.9% 1000 ML 2,000 ML IV ONE (13:38)
[2017-12-02] MEDS ORDERED: VANCOMYCIN/NS 1 GM/250 ML 1 GM/250 ML BAG IV SCH (14:00)
[2017-12-02] MEDS ORDERED: NACL 0.45% 1000 ML 1,000 ML IV SCH (14:00)
[2017-12-02 15:05] VITALS: BP 128/90
[2017-12-02] MEDS ORDERED: SODIUM CHLORIDE FLUSH SYRINGE 10 ML IV SCH (22:00)
== END 2017-12-02 17:36 | disposition left against medical advice (07) | DRG 812 ==
LOC: ED 06:45 → 3A 13:28
PROVIDERS: ADMIT Internal Medicine; ATTEND Internal Medicine
DX: D57.00 Hb-SS disease with crisis, unspecified (principal); I10 Essential (primary) hypertension; F17.200 Nicotine dependence, unspecified, uncomplicated; H57.03 Miosis; Z76.5 Malingerer [conscious simulation]; Z79.899 Other long term (current) drug therapy; Z88.5 Allergy status to narcotic agent; Z53.21 Procedure and treatment not carried out due to patient leaving prior to being seen by health care provider
CPT/HCPCS: 36415; 85025; 85045; J1170; J1200; J2405; J7030

== ENCOUNTER 2018-01-08 10:26 | Emergency (ER) | payer MEDICAID ==
[2018-01-08] MEDS ORDERED: DILAUDID IV ONE ×3 (10:57→12:47)
[2018-01-08] MEDS ORDERED: ZOFRAN IV ONE (10:57)
[2018-01-08] MEDS ORDERED: D5NS 0.2% 1,000 ML IV SCH (11:00)
--- NOTE | 2018-01-08 11:06 | Emergency Department Report ---
HPI - General Chief Complaint: Sickle Cell Crisis Time Seen by Provider: 01/08/18 10:57 - HPI HPI: Room 19 The patient is a 42-year-old male presented with a chief complaint of sickle cell pain crisis. The patient states the symptoms began approximately 2-3 days ago with pain in the left upper extremity and left lower extremity consistent with his sickle cell pain crises. Patient states he's been taking his Percocet at home and it has not helped. The patient gives his pain a score of 8-9/10 Location: Left arm, left leg Duration:2-3 days Quality: Sickle cell pain crisis Severity: 8-9/10 Modifying factors: [see above] Context: [see above] Mode of transportation: [not driving] ED Past Medical Hx - Past Medical History Hx Hypertension: Yes Hx Sickle Cell Disease: Yes Additional medical history: sickle cell. - Surgical History Additional Surgical History: Right chest and right arm port and removal of both - Family History Family history: no significant - Social History Smoking Status: Current Every Day Smoker Substance Use Type: Alcohol - Medications Home Medications: Home Medications Medication Instructions Recorded Confirmed Last Taken Type Folic Acid [Folvite] 1 mg PO QDAY #30 tablet 12/01/16 12/02/17 12/01/17 Rx Methadone [Dolophine] 60 mg PO DAILY #10 tablet 12/01/16 12/02/17 12/01/17 Rx Hydroxyurea [Hydrea] 500 mg PO DAILY 10/04/17 12/02/17 12/01/17 History Lisinopril [Zestril] 20 mg PO DAILY 10/04/17 12/02/17 12/01/17 History Oxycodone HCl/Acetaminophen 1 each PO Q4-6H PRN 12/02/17 12/02/17 12/01/17 History [Percocet 10/325 mg] oxyCODONE /ACETAMINOPHEN [Percocet 1 tab PO Q6HR PRN #9 tablet 12/17/17 Unknown Rx 5/325] ED Review of Systems ROS: Stated complaint: SICKLE CELL Other details as noted in HPI Constitutional: no symptoms reported Eyes: denies: eye pain ENT: denies: throat pain Respiratory: no symptoms reported Cardiovascular: denies: chest pain Endocrine: no symptoms reported Gastrointestinal: denies: abdominal pain Genitourinary: denies: dysuria Musculoskeletal: myalgia Neurological: denies: headache Hematological/Lymphatic: other (sickle cell pain crisis) Physical Exam - Physical Exam Vital Signs: Vital Signs 01/08/18 10:49 Temperature 98.7 F Pulse Rate 68 Respiratory 18 Rate Blood Pressure 144/89 O2 Sat by Pulse 95 Oximetry Physical Exam: GENERAL: The patient is well-developed well-nourished male lying on stretcher appearing to be in moderate discomfort. [] HEENT: Normocephalic. Atraumatic. Extraocular motions are intact. Patient has moist mucous membranes. NECK: Supple. Trachea midline CHEST/LUNGS: Clear to auscultation. There is no respiratory distress noted. HEART/CARDIOVASCULAR: Regular. There is no tachycardia. There is no gallop rub or murmur. ABDOMEN: Abdomen is soft, nontender. Patient has normal bowel sounds. There is no abdominal distention. SKIN: There is no rash. There is no edema. There is no diaphoresis. NEURO: The patient is awake, alert, and oriented. The patient is cooperative. The patient has normal speech MUSCULOSKELETAL: There is no evidence of acute injury. ED Course Vital Signs 01/08/18 10:49 Temperature 98.7 F Pulse Rate 68 Respiratory 18 Rate Blood Pressure 144/89 O2 Sat by Pulse 95 Oximetry - Reevaluation(s) Reevaluation #1: 01/08/18 12:46 Patient states his pain is decreased to an 8/10. Will give more analgesia and reassess Reevaluation #2: 01/08/18 13:36 Patient states he has not improved since last administration of pain medication. We will admit the patient to the hospital ED Medical Decision Making - Lab Data Result diagrams: 01/08/18 11:52 Laboratory Tests 01/08/18 11:52 WBC 12.3 H RBC 4.25 Hgb 12.8 Hct 36.2 MCV 85 MCH 30 MCHC 35 H RDW 18.9 H Plt Count 426 Lymph % (Auto) 23.8 [place] % (Auto) 6.3 Eos % (Auto) 5.0 H Baso % (Auto) 2.3 H Lymph # 2.9 [place] # 0.8 Eos # 0.6 H Baso # 0.3 H Seg Neutrophils % 62.6 Seg Neutrophils # 7.7 Percent Retic 3.35 H - Differential Diagnosis sickle cell pain crisis Critical care attestation.: If time is entered above; I have spent that time in minutes in the direct care of this critically ill patient, excluding procedure time. ED Disposition Clinical Impression: Sickle cell crisis Disposition: DC-09 OP ADMIT IP TO THIS HOSP Is pt being admited?: Yes Does the pt Need Aspirin: Yes Condition: Fair Referrals: PRIMARY CARE,MD [Primary Care Provider] - 3-5 Days Time of Disposition: 13:36 (hospitalist paged (Dr Oliveros))
[2018-01-08] MEDS ORDERED: BENADRYL IV ONE (11:17)
[2018-01-08] MEDS ORDERED: BENADRYL ONE (11:21)
[2018-01-08 12:02] LABS: Basophils # (Auto) 0.3 K/mm3 (0.0-0.1); Basophils % (Auto) 2.3 % (0.0-1.8); Eosinophils # (Auto) 0.6 K/mm3 (0.0-0.4); Hematocrit 36.2 % (35.5-45.6); Hemoglobin 12.8 gm/dl (11.8-15.2); Lymphocytes # (Auto) 2.9 K/mm3 (1.2-5.4); Lymphocytes % (Auto) 23.8 % (13.4-35.0); Mean Corpuscular HGB Conc 35 % (32-34); Mean Corpuscular Hemoglobin 30 pg (28-32); Mean Corpuscular Volume 85 fl (84-94); Monocytes # (Auto) 0.8 K/mm3 (0.0-0.8); Monocytes % (Auto) 6.3 % (0.0-7.3); Platelet Count 426 K/mm3 (140-440); Red Blood Count 4.25 M/mm3 (3.65-5.03); Red Cell Distribution Width 18.9 % (13.2-15.2)
[2018-01-08] MEDS ORDERED: DILAUDID IV PRN (14:05)
--- NOTE | 2018-01-08 14:20 | Event Note ---
Date: 01/08/18 Comes in for pain alll over--Possible SC crisis labs evaluated Retic count 3.35 H/H normal Dx Sickle cell crisis--doubtful Will d/c home Recieved IV fluids Pain seeking behavior. Discharge home Oxycontin CR 15 mg po Bid for Breakthrough pain. F/u with Dr Mike Daniel
[2018-01-08] MEDS ORDERED: NACL 0.9% 1000 ML 1,000 ML IV ONE (15:05)
[2018-01-08 16:42] VITALS: BP 128/73
== END 2018-01-08 16:42 | disposition admitted as inpatient to this hospital (09) ==
LOC: ED 10:26
DX: D57.219 Sickle-cell/Hb-C disease with crisis, unspecified (principal); I10 Essential (primary) hypertension; F17.200 Nicotine dependence, unspecified, uncomplicated
CPT/HCPCS: 36415; 85025; 85045; 96365; 96375; 96376; 99284; J1170; J1200; J2405

== ENCOUNTER 2018-01-15 08:50 | Emergency (ER) | payer MEDICAID ==
[2018-01-15] MEDS ORDERED: ZOFRAN IV ONE (08:58)
[2018-01-15] MEDS ORDERED: BENADRYL IV ONE (08:58)
[2018-01-15] MEDS ORDERED: DILAUDID IV ONE ×3 (08:58→11:54)
[2018-01-15] MEDS ORDERED: D5NS 0.2% 1,000 ML IV SCH (09:00)
--- NOTE | 2018-01-15 09:03 | Emergency Department Report ---
HPI - General Time Seen by Provider: 01/15/18 08:56 - HPI HPI: Room 8 The patient is a 42-year-old male presenting with chief complaint sickle cell pain crisis. Patient states his symptoms began to pain and left arm and leg. Patient states feels like his pain crisis. Patient states he was taking Percocet at home but has not helped. Patient states his pain has steadily worsened. The patient currently gets his pain is score of 8-9/10 Location: [See above] Duration: [See above] Quality: Sickle cell pain crisis Severity: 8-9/10 Modifying factors: [see above] Context: [see above] Mode of transportation: [not driving] ED Past Medical Hx - Past Medical History Hx Hypertension: Yes Hx Sickle Cell Disease: Yes Additional medical history: sickle cell. - Surgical History Additional Surgical History: Right chest and right arm port and removal of both - Family History Family history: no significant - Social History Smoking Status: Current Every Day Smoker Substance Use Type: Alcohol - Medications Home Medications: Home Medications Medication Instructions Recorded Confirmed Last Taken Type Folic Acid [Folvite] 1 mg PO QDAY #30 tablet 12/01/16 12/02/17 12/01/17 Rx Methadone [Dolophine] 60 mg PO DAILY #10 tablet 12/01/16 12/02/17 12/01/17 Rx Hydroxyurea [Hydrea] 500 mg PO DAILY 10/04/17 12/02/17 12/01/17 History Lisinopril [Zestril] 20 mg PO DAILY 10/04/17 12/02/17 12/01/17 History Oxycodone HCl/Acetaminophen 1 each PO Q4-6H PRN 12/02/17 12/02/17 12/01/17 History [Percocet 10/325 mg] oxyCODONE /ACETAMINOPHEN [Percocet 1 tab PO Q6HR PRN #9 tablet 12/17/17 Unknown Rx 5/325] Oxycodone HCl [OxyCONTIN ER TAB] 15 mg PO Q12HR #10 tab 01/08/18 Unknown Rx ED Review of Systems ROS: Stated complaint: SICKLE CRISIS Other details as noted in HPI Constitutional: no symptoms reported Eyes: denies: eye pain ENT: denies: throat pain Respiratory: no symptoms reported Cardiovascular: denies: chest pain Endocrine: no symptoms reported Gastrointestinal: denies: abdominal pain Genitourinary: denies: dysuria Musculoskeletal: myalgia Neurological: denies: headache Hematological/Lymphatic: other (sickle cell pain crisis) Physical Exam - Physical Exam Physical Exam: GENERAL: The patient is well-developed well-nourished male lying on a stretcher appearing to be in moderate discomfort. [] HEENT: Normocephalic. Atraumatic. Extraocular motions are intact. Patient has moist mucous membranes. NECK: Supple. Trachea midline CHEST/LUNGS: Clear to auscultation. There is no respiratory distress noted. HEART/CARDIOVASCULAR: Regular. There is no tachycardia. There is no gallop rub or murmur. ABDOMEN: Abdomen is soft, nontender. Patient has normal bowel sounds. There is no abdominal distention. SKIN: There is no rash. There is no edema. There is no diaphoresis. NEURO: The patient is awake, alert, and oriented. The patient is cooperative. The patient has normal speech MUSCULOSKELETAL: There is no increased warmth of the left elbow. There is no evidence of acute injury. ED Course - Reevaluation(s) Reevaluation #1: 01/15/18 11:54 Patient states his pain is decreased to 6/10. Patient believes he will be comfortable to go home after one more round of pain medication ED Medical Decision Making - Lab Data Result diagrams: 01/15/18 09:15 Laboratory Tests 01/15/18 09:15 WBC 12.6 H RBC 4.08 Hgb 12.4 Hct 35.2 L MCV 86 MCH 30 MCHC 35 H RDW 18.8 H Plt Count 437 Baso % (Auto) Director Of Security Percent Retic 5.64 H - Differential Diagnosis sickle cell pain crisis Critical care attestation.: If time is entered above; I have spent that time in minutes in the direct care of this critically ill patient, excluding procedure time. ED Disposition Clinical Impression: Sickle cell crisis Disposition: DC-01 TO HOME OR SELFCARE Is pt being admited?: No Does the pt Need Aspirin: No Condition: Stable Instructions: Sickle Cell Crisis (ED) Additional Instructions: Return to the emergency department immediately should you develop worsening symptoms, fever, inability to tolerate food or liquid or any other concerns. Referrals: PRIMARY CARE, [Primary Care Provider] - 3-5 Days Time of Disposition: 11:55
[2018-01-15 09:45] LABS: Hematocrit 35.2 % (35.5-45.6); Hemoglobin 12.4 gm/dl (11.8-15.2); Mean Corpuscular Volume 86 fl (84-94)
[2018-01-15 09:46] LABS: Mean Corpuscular HGB Conc 35 % (32-34); Mean Corpuscular Hemoglobin 30 pg (28-32); Platelet Count 437 K/mm3 (140-440); Red Blood Count 4.08 M/mm3 (3.65-5.03); Red Cell Distribution Width 18.8 % (13.2-15.2)
[2018-01-15 10:18] LABS: Anisocytosis 1+; Total Cells Counted 100
[2018-01-15 10:19] LABS: Ovalocytes Few; Spherocytes Rare; Stomatocytes Few; Target Cells 2+
[2018-01-15 10:20] LABS: Large Platelets Few; Platelet Estimate Consistent w Auto
[2018-01-15 12:05] VITALS: BP 106/69
== END 2018-01-15 12:20 | disposition home or self-care (01) ==
LOC: ED 08:50
DX: D57.00 Hb-SS disease with crisis, unspecified (principal); I10 Essential (primary) hypertension; F17.200 Nicotine dependence, unspecified, uncomplicated; Z88.6 Allergy status to analgesic agent; Z88.8 Allergy status to other drugs, medicaments and biological substances
CPT/HCPCS: 36415; 85007; 85025; 85045; 96374; 96375; 96376; 99284; J1170; J1200; J2405

== ENCOUNTER 2018-01-26 07:50 | Emergency (ER) | payer MEDICAID ==
[2018-01-26] MEDS ORDERED: D5NS 0.2% 1,000 ML IV SCH (09:00)
[2018-01-26] MEDS ORDERED: DILAUDID IV ONE ×3 (11:52→14:10)
[2018-01-26] MEDS ORDERED: NACL 0.9% 1000 ML 1,000 ML IV ONE (11:53)
[2018-01-26] MEDS ORDERED: BANOPHEN PO ONE (11:53)
[2018-01-26 12:27] LABS: Basophils # (Auto) 0.3 K/mm3 (0.0-0.1); Basophils % (Auto) 2.4 % (0.0-1.8); Eosinophils # (Auto) 0.4 K/mm3 (0.0-0.4); Eosinophils % (Auto) 3.8 % (0.0-4.3); Hematocrit 36.5 % (35.5-45.6); Hemoglobin 12.6 gm/dl (11.8-15.2); Lymphocytes # (Auto) 1.9 K/mm3 (1.2-5.4); Mean Corpuscular HGB Conc 35 % (32-34); Mean Corpuscular Hemoglobin 30 pg (28-32); Mean Corpuscular Volume 87 fl (84-94); Monocytes # (Auto) 0.9 K/mm3 (0.0-0.8); Monocytes % (Auto) 7.8 % (0.0-7.3); Platelet Count 391 K/mm3 (140-440); Red Blood Count 4.19 M/mm3 (3.65-5.03); Red Cell Distribution Width 19.2 % (13.2-15.2)
[2018-01-26 12:39] LABS: BUN/Creatinine Ratio 16; Blood Urea Nitrogen 11 mg/dL (9-20); Calcium 9.1 mg/dL (8.4-10.2); Hemolysis Index 53
[2018-01-26] MEDS ORDERED: ZOFRAN IV ONE (12:52)
[2018-01-26] MEDS ORDERED: BENADRYL IM ONE (12:53)
[2018-01-26 14:45] VITALS: BP 141/90
--- NOTE | 2018-01-26 14:52 | Emergency Department Report ---
ED General Adult HPI - General Chief complaint: Sickle Cell Crisis Stated complaint: SICKEL CELL PAIN Time Seen by Provider: 01/26/18 11:46 Source: patient, EMS Mode of arrival: Stretcher Limitations: No Limitations - History of Present Illness Severity scale (0 -10): 6 - Related Data Home Medications Medication Instructions Recorded Confirmed Last Taken Hydroxyurea [Hydrea] 500 mg PO DAILY 10/04/17 12/02/17 12/01/17 Lisinopril [Zestril] 20 mg PO DAILY 10/04/17 12/02/17 12/01/17 Oxycodone HCl/Acetaminophen 1 each PO Q4-6H PRN 12/02/17 12/02/17 12/01/17 [Percocet 10/325 mg] Previous Rx's Medication Instructions Recorded Last Taken Type Folic Acid [Folvite] 1 mg PO QDAY #30 tablet 12/01/16 12/01/17 Rx Methadone [Dolophine] 60 mg PO DAILY #10 tablet 12/01/16 12/01/17 Rx oxyCODONE /ACETAMINOPHEN [Percocet 1 tab PO Q6HR PRN #9 tablet 12/17/17 Unknown Rx 5/325] Oxycodone HCl [OxyCONTIN ER TAB] 15 mg PO Q12HR #10 tab 01/08/18 Unknown Rx Allergies Allergy/AdvReac Type Severity Reaction Status Date / Time ketorolac tromethamine Allergy Hives Verified 12/02/17 07:11 [From Toradol] morphine Allergy Swelling Verified 12/02/17 07:11 prochlorperazine edisylate Allergy Itching Verified 12/02/17 07:11 [From Compazine] prochlorperazine maleate Allergy Itching Verified 12/02/17 07:11 [From Compazine] ED Review of Systems ROS: Stated complaint: SICKEL CELL PAIN Other details as noted in HPI ED Past Medical Hx - Past Medical History Hx Hypertension: Yes Hx Sickle Cell Disease: Yes Additional medical history: sickle cell. - Surgical History Additional Surgical History: Right chest and right arm port and removal of both - Social History Smoking Status: Current Every Day Smoker Substance Use Type: None - Medications Home Medications: Home Medications Medication Instructions Recorded Confirmed Last Taken Type Folic Acid [Folvite] 1 mg PO QDAY #30 tablet 12/01/16 12/02/17 12/01/17 Rx Methadone [Dolophine] 60 mg PO DAILY #10 tablet 12/01/16 12/02/17 12/01/17 Rx Hydroxyurea [Hydrea] 500 mg PO DAILY 10/04/17 12/02/17 12/01/17 History Lisinopril [Zestril] 20 mg PO DAILY 10/04/17 12/02/17 12/01/17 History Oxycodone HCl/Acetaminophen 1 each PO Q4-6H PRN 12/02/17 12/02/17 12/01/17 History [Percocet 10/325 mg] oxyCODONE /ACETAMINOPHEN [Percocet 1 tab PO Q6HR PRN #9 tablet 12/17/17 Unknown Rx 5/325] Oxycodone HCl [OxyCONTIN ER TAB] 15 mg PO Q12HR #10 tab 01/08/18 Unknown Rx ED Physical Exam - General Limitations: No Limitations ED Course Vital Signs 01/26/18 01/26/18 08:26 14:44 Temperature 98.5 F Pulse Rate 65 48 L Respiratory 22 18 Rate Blood Pressure 144/91 Blood Pressure 141/90 [Right] O2 Sat by Pulse 95 96 Oximetry ED Medical Decision Making - Lab Data Result diagrams: 01/26/18 12:14 01/26/18 12:14 Critical care attestation.: If time is entered above; I have spent that time in minutes in the direct care of this critically ill patient, excluding procedure time. ED Disposition Disposition: DC-01 TO HOME OR SELFCARE Condition: Stable Referrals: EDUARDO REYES MD [Staff Physician] - 3-5 Days
== END 2018-01-26 14:44 | disposition home or self-care (01) ==
LOC: ED 07:50
DX: D57.00 Hb-SS disease with crisis, unspecified (principal); I10 Essential (primary) hypertension; F17.200 Nicotine dependence, unspecified, uncomplicated
CPT/HCPCS: 36415; 80048; 85025; 85045; 96372; 96374; 96375; 96376; 99284; J1170; J1200; J2405; J7030; Q0163

== ENCOUNTER 2018-11-30 13:36 | Emergency (ER) | payer MEDICAID ==
[2018-11-30 14:20] LABS: Hematocrit 37.2 % (35.5-45.6); Hemoglobin 13.1 gm/dl (11.8-15.2); Mean Corpuscular HGB Conc 35 % (32-34); Mean Corpuscular Volume 86 fl (84-94); Platelet Count 475 K/mm3 (140-440); Red Blood Count 4.31 M/mm3 (3.65-5.03)
[2018-11-30] MEDS ORDERED: DILAUDID IV ONE (14:37)
[2018-11-30] MEDS ORDERED: NACL 0.9% 1000 ML 1,000 ML IV ONE (14:37)
[2018-11-30 14:38] LABS: BUN/Creatinine Ratio 10; Blood Urea Nitrogen 9 mg/dL (9-20); Calcium 9.3 mg/dL (8.4-10.2); Hemolysis Index 8
[2018-11-30] MEDS ORDERED: BENADRYL IV ONE (14:38)
--- NOTE | 2018-11-30 14:43 | Emergency Department Report ---
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 States this is the usual location for his sickle cell pain. Patient reports he has been taking Percocet at home without relief. States has an appointment with his pass worker, Dr. Mike Sherman in 3 days. Patient reports his last transfusion was one year ago. Patient denies any fever, chest pain, shortness of breath. -: days(s) (1) Location: left, right, upper extremity, lower extremity Radiation: non-radiation Quality: aching Consistency: constant Improves with: none Worsens with: none Associated Symptoms: denies: chest pain, fever/chills, shortness of breath Treatments Prior to Arrival: other (percocet) - Related Data Home Medications Medication Instructions Recorded Confirmed Last Taken Hydroxyurea [Hydrea] 500 mg PO DAILY 10/04/17 12/02/17 12/01/17 Lisinopril [Zestril] 20 mg PO DAILY 10/04/17 12/02/17 12/01/17 Oxycodone HCl/Acetaminophen 1 each PO Q4-6H PRN 12/02/17 12/02/17 12/01/17 [Percocet 10/325 mg] Previous Rx's Medication Instructions Recorded Last Taken Type Folic Acid [Folvite] 1 mg PO QDAY #30 tablet 12/01/16 12/01/17 Rx Methadone [Dolophine] 60 mg PO DAILY #10 tablet 12/01/16 12/01/17 Rx oxyCODONE /ACETAMINOPHEN [Percocet 1 tab PO Q6HR PRN #9 tablet 12/17/17 Unknown Rx 5/325] Oxycodone HCl [OxyCONTIN ER TAB] 15 mg PO Q12HR #10 tab 01/08/18 Unknown Rx Cyclobenzaprine [Flexeril] 10 mg PO QHS PRN #20 tablet 02/06/18 Unknown Rx Ibuprofen [Motrin] 800 mg PO Q8HR #30 tablet 02/06/18 Unknown Rx Allergies Allergy/AdvReac Type Severity Reaction Status Date / Time ketorolac tromethamine Allergy Hives Verified 02/19/18 07:28 [From Toradol] morphine Allergy Swelling Verified 02/19/18 07:28 prochlorperazine edisylate Allergy Itching Verified 02/19/18 07:28 [From Compazine] prochlorperazine maleate Allergy Itching Verified 02/19/18 07:28 [From Compazine] ED Review of Systems ROS: Stated complaint: SICKLE CELL CRISIS Other details as noted in HPI Comment: All other systems reviewed and negative Constitutional: denies: chills, fever Respiratory: denies: shortness of breath Cardiovascular: denies: chest pain Musculoskeletal: as per HPI ED Past Medical Hx - Past Medical History Previous Medical History?: Yes Hx Hypertension: Yes Hx Sickle Cell Disease: Yes Additional medical history: sickle cell. - Surgical History Past Surgical History?: Yes Additional Surgical History: R arm port-removed due to infection - Social History Smoking Status: Current Every Day Smoker Substance Use Type: None - Medications Home Medications: Home Medications Medication Instructions Recorded Confirmed Last Taken Type Folic Acid [Folvite] 1 mg PO QDAY #30 tablet 12/01/16 12/02/17 12/01/17 Rx Methadone [Dolophine] 60 mg PO DAILY #10 tablet 12/01/16 12/02/17 12/01/17 Rx Hydroxyurea [Hydrea] 500 mg PO DAILY 10/04/17 12/02/17 12/01/17 History Lisinopril [Zestril] 20 mg PO DAILY 10/04/17 12/02/17 12/01/17 History Oxycodone HCl/Acetaminophen 1 each PO Q4-6H PRN 12/02/17 12/02/17 12/01/17 History [Percocet 10/325 mg] oxyCODONE /ACETAMINOPHEN [Percocet 1 tab PO Q6HR PRN #9 tablet 12/17/17 Unknown Rx 5/325] Oxycodone HCl [OxyCONTIN ER TAB] 15 mg PO Q12HR #10 tab 01/08/18 Unknown Rx Cyclobenzaprine [Flexeril] 10 mg PO QHS PRN #20 tablet 02/06/18 Unknown Rx Ibuprofen [Motrin] 800 mg PO Q8HR #30 tablet 02/06/18 Unknown Rx ED Physical Exam - General Limitations: No Limitations General appearance: alert, in no apparent distress - Head Head exam: Present: atraumatic, normocephalic - Eye Eye exam: Present: normal appearance, PERRL, EOMI - ENT ENT exam: Present: normal exam - Neck Neck exam: Present: normal inspection - Respiratory Respiratory exam: Present: normal lung sounds bilaterally. Absent: respiratory distress - Cardiovascular Cardiovascular Exam: Present: regular rate, normal rhythm - GI/Abdominal GI/Abdominal exam: Present: soft. Absent: distended, tenderness - Extremities Exam Extremities exam: Present: normal inspection - Neurological Exam Neurological exam: Present: alert, oriented X3 - Psychiatric Psychiatric exam: Present: normal affect, normal mood - Skin Skin exam: Present: warm, dry, intact, normal color ED Course Vital Signs 11/30/18 11/30/18 11/30/18 13:46 14:45 15:50 Temperature 98.8 F 98.3 F Pulse Rate 71 75 Respiratory 26 H 26 H 20 Rate Blood Pressure 143/76 Blood Pressure 135/70 [Left] O2 Sat by Pulse 97 100 Oximetry ED Medical Decision Making - Lab Data Result diagrams: 11/30/18 14:10 11/30/18 14:10 - Medical Decision Making 43-year-old male presents to ED reporting history of sickle cell anemia, SS- type. Reports he is currently in a pain crisis with pain to bilateral arms and legs. Hemoglobin is 14, reticulocyte count is only 4. Patient has chronic leukocytosis, with WBCs currently at 13.1, which appears to be around his baseline compared to previous visits. Patient was given 1 dose of Dilaudid, IV fluids, IV Benadryl. States his pain went from a 10 to a 7. Patient was requesting additional doses of Dilaudid. Advised patient that although he may be in pain, he does not seem to be in acute sickle cell crisis at this time, therefore he will not be receiving any more IV narcotics. Patient reports he has Percocet at home. I also checked the [place] [employer] registry and it appears that patient also takes methadone, which he confirmed. Also, patient reports he has a follow-up appointment with his pass worker in 2 days. Will discharge at this time. Return precautions given. - Differential Diagnosis sickle cell, chronic pain Critical care attestation.: If time is entered above; I have spent that time in minutes in the direct care of this critically ill patient, excluding procedure time. ED Disposition Clinical Impression: History of sickle cell disease, Extremity pain Disposition: DC-01 TO HOME OR SELFCARE Is pt being admited?: No Condition: Stable Instructions: Sickle Cell Crisis (ED) Referrals: PRIMARY CARE, [Referring] - [facility] Time of Disposition: 15:14
[2018-11-30 15:51] VITALS: BP 135/70
[2018-11-30 19:18] LABS: Basophils % (Manual) 0 % (0.0-1.8); Total Cells Counted 100
[2018-11-30 19:19] LABS: Anisocytosis 1+
[2018-11-30 19:20] LABS: Large Platelets 1+; Sickle Cells Few; Target Cells 3+
[2018-11-30 19:21] LABS: Platelet Estimate Consistent w Auto
== END 2018-11-30 16:00 | disposition home or self-care (01) ==
LOC: ED 13:36
DX: D57.1 Sickle-cell disease without crisis (principal); I10 Essential (primary) hypertension; F17.200 Nicotine dependence, unspecified, uncomplicated; Z88.5 Allergy status to narcotic agent; Z88.8 Allergy status to other drugs, medicaments and biological substances; Z79.1 Long term (current) use of non-steroidal anti-inflammatories (NSAID); Z79.899 Other long term (current) drug therapy
CPT/HCPCS: 36415; 80048; 85007; 85025; 85045; 96374; 96375; 99284; J1170; J1200; J7030

== ENCOUNTER 2019-12-04 08:45 | Emergency (ER) | payer MEDICAID | END 2019-12-04 10:34 | disposition left against medical advice (07) | LOC: ED 08:45 | DX: D57.00 Hb-SS disease with crisis, unspecified (principal); Z53.21 Procedure and treatment not carried out due to patient leaving prior to being seen by health care provider ==